=== PATIENT | female | born 1960 | race Caucasian/White ===

== ENCOUNTER 2020-02-22 08:15 | Outpatient (CLI) | payer BC, SELFPAY ==
--- NOTE | ~2020-02-22 | MM_ITS ---
EXAMINATION: MM screening tala BI w tram HISTORY: Screening mammogram TECHNIQUE: Craniocaudal and mediolateral oblique 3-D tomosynthesis images were obtained and synthetic 2-D images were generated. CAD analysis was submitted and interpreted. COMPARISON: 06/23/2018, 02/23/2017, 01/16/2016 bilateral digital screening mammogram examinations BREAST PARENCHYMAL COMPOSITION: The breasts are almost entirely fatty. FINDINGS: There is no evidence of suspicious mass, calcification, or architectural distortion to sugg est malignancy in either breast. There has been no suspicious interval change. IMPRESSION: 1. No mammographic evidence of malignancy. 2. Recommend routine screening mammography in one year. BI-RADS Category 1: Negative Reviewed, dictated and finalized at location B. FITTER
== END 2020-02-22 08:16 | disposition home or self-care (01) ==
LOC: ANHIMG 08:17
PROVIDERS: PCP Family Medicine; Visit Provider Physician Assistant
DX: Z12.31 Encounter for screening mammogram for malignant neoplasm of breast (principal)
CPT/HCPCS: 77063; 77067

== ENCOUNTER 2020-04-07 20:53 | Emergency (ER) | payer BC, SELFPAY ==
[2020-04-07 20:56] VITALS: BP 171/88; PULSE 80; RESP 16; TEMP 36.8; O2SAT 99
--- NOTE | 2020-04-07 22:00 | ED.WOUNDLAC ---
HPI - Wound/Laceration General Chief Complaint: Wound/Laceration Stated Complaint: finger laceration Time Seen by Provider: 04/07/20 21:44 Source: patient Mode of arrival: ambulatory Limitations: no limitations History of Present Illness HPI narrative: 59 years old white female presents with laceration of the right fifth finger while using a knife to cut him. Patient denies other injuries. Patient is up-to-date for tetanus shot. Patient declined x-ray of the finger Related Data Allergies Allergy/AdvReac Type Severity Reaction Status Date / Time latex Allergy Intermediate RASH Verified 04/07/20 21:02 Tetracyclines Allergy Unknown RASH Verified 04/07/20 21:02 Review of Systems Review of Systems: Narrative: CONSTITUTIONAL: Denies fever, chills, or sweats. EYES: Denies visual changes, redness, or discharge. ENT: Denies rhinorrhea, congestion, sore throat, or otalgia. CARDIOVASCULAR: Denies chest pain, palpitations, or edema. RESPIRATORY: Denies cough or dyspnea. GASTROINTESTINAL: Denies abdominal pain, nausea, vomiting, or diarrhea. GENITOURINARY: Denies dysuria or hematuria. SKIN: Denies rash or itching. MUSCULOSKELETAL: Denies back pain, joint pain, or myalgia. NEUROLOGIC: Denies headache, numbness, or weakness. PSYCHIATRIC: Denies anxiety or depression. [facility] Family History Family History Mother Diabetes mellitus Family history of malignant neoplasm of breast in first degree relative Grandparent Diabetes mellitus Family history of malignant neoplasm of breast Father Hypertension Family history of cardiovascular disease Social History Social History Smoking status: Former smoker Smoking end date: 04/06/81 Alcohol intake: current Exam Narrative: Exam Narrative: General appearance: Well-developed, well-nourished Skin: Normal color, right fifth finger showed 1 cm subcutaneous laceration at the dorsal side, just no ligament or tendon involved. Patient is able to flex and extend the finger without any restriction. No active bleeding. Patient arrived with Steri-Strips in place Chest and respiratory: Airway patent, no respiratory distress, no accessory muscle use Heart: Regular rate/rhythm Vascular: Normal peripheral pulses, normal capillary refill. Neurologic: Alert and oriented ?3, Course Course Emergency Course: Stable, resolved Vital Signs Vital signs: Vital Signs Temperature 36.8 C 04/07/20 20:56 Pulse Rate 80 04/07/20 20:56 Respiratory Rate 16 04/07/20 20:56 Blood Pressure 171/88 H 04/07/20 20:56 Pulse Oximetry 99 04/07/20 20:56 Temperature 36.6 C 04/07/20 22:47 Pulse Rate 84 04/07/20 22:47 Respiratory Rate 20 04/07/20 22:47 Blood Pressure 156/71 H 04/07/20 22:47 Pulse Oximetry 99 04/07/20 22:47 Procedures Laceration Laceration 1: Date: 04/07/20 Time: 22:56 Site: other (Right fifth finger) Size (cm): 1 Description: linear Depth: simple, single layer Local Anesthetic: lidocaine 1% Amount of anesthesia used (mL): 1 Pre-repair: wound explored, irrigated and deep structures intact ====== Skin Level ====== Skin layer closed with: other (Ethilon) Size (cm): 6-0 Number of sutures: 4 Technique: simple, interrupted ====== Subcutaneous Layer ====== ====== Muscle Layer ====== ====== Tendon Layer ====== MDM - Wound/Laceration MDM Narrative Medical decision making narrative: Patient presents with a laceration on the right fifth finger, Plan to
--- NOTE | 2020-04-07 22:45 | PC.NURSE ---
Verbal order to dress wound and splint finger with metal finger splint was obtained from Dr. Sprague.
[2020-04-07 22:47] VITALS: BP 156/71; PULSE 84; RESP 20; TEMP 36.6; O2SAT 99
== END 2020-04-07 22:50 | disposition home or self-care (01) ==
PROVIDERS: Emergency Provider Emergency Medicine; PCP Family Medicine
DX: S61.216A Laceration without foreign body of right little finger without damage to nail, initial encounter (principal); Z87.891 Personal history of nicotine dependence; W26.0XXA Contact with knife, initial encounter
CPT/HCPCS: 12001; 99282

== ENCOUNTER 2021-05-13 09:45 | Outpatient (RCR) | payer BC, SELFPAY ==
[2021-05-13 10:38] VITALS: BP 135/76; PULSE 74; TEMP 37.1; O2SAT 97
[2021-05-13] MEDS: ACETAMINOPHEN 325 MG TABLET 650 MG PO (10:40)
[2021-05-13] MEDS: FAMOTIDINE 20 MG TABLET PO (10:40)
[2021-05-13] MEDS: diphenhydrAMINE HCl CAP 25 MG CAPSULE PO (10:41)
[2021-05-13 12:05] VITALS: BP 140/71; PULSE 62; O2SAT 99
== END 2021-05-13 15:25 ==
LOC: AMCINF 09:45
PROVIDERS: PCP Family Medicine; Referring Provider Family Medicine; Visit Provider Internal Medicine Hematology & Oncology
DX: U07.1 COVID-19 (principal); I10 Essential (primary) hypertension
CPT/HCPCS: A9270; M0247; Q0247

== ENCOUNTER 2021-09-25 09:00 | Outpatient (CLI) | payer BC, SELFPAY ==
--- NOTE | ~2021-09-25 | MM_ITS ---
EXAMINATION: MM screening tala BI w tram HISTORY: Screening mammogram TECHNIQUE: Craniocaudal and mediolateral oblique 3-D tomosynthesis images were obtained and synthetic 2-D images were generated. CAD analysis was submitted and interpreted. COMPARISON: 02/22/2020, 07/01/2018, 03/03/2017 bilateral screening mammogram examinations BREAST PARENCHYMAL COMPOSITION: The breasts are almost entirely fatty. FINDINGS: There is no evidence of suspicious mass, calcification, or architectural distortion to sugg est malignancy in either breast. There has been no suspicious interval change. IMPRESSION: 1. No mammographic evidence of malignancy. 2. Recommend routine screening mammography in one year. BI-RADS Category 1: Negative Reviewed, dictated and finalized at location A.
== END 2021-09-25 09:01 | disposition home or self-care (01) ==
PROVIDERS: PCP Family Medicine; Visit Provider Family Medicine
DX: Z12.31 Encounter for screening mammogram for malignant neoplasm of breast (principal)
CPT/HCPCS: 77063; 77067

== ENCOUNTER 2023-08-06 10:51 | Outpatient (CLI) | payer BC, SELFPAY ==
[2023-08-06 19:19] LABS: Cholesterol 191 mg/dL (0-200); HDL Direct 48 mg/dL; Triglycerides 156 mg/dL (<150)
[2023-08-06 19:36] LABS: LDL Cholesterol Direct 127 mg/dL
== END 2023-08-06 10:52 | disposition home or self-care (01) ==
LOC: ANHGOSHLAB 10:54
PROVIDERS: PCP Family Medicine; Visit Provider Physician Assistant
DX: E78.5 Hyperlipidemia, unspecified (principal)
CPT/HCPCS: 36415; 80061

== ENCOUNTER 2023-12-16 07:34 | Outpatient (CLI) | payer MEDICARE, SELFPAY ==
--- NOTE | ~2023-12-16 | MM_ITS ---
EXAMINATION: MM screening taal BI w tram HISTORY: Screening mammogram TECHNIQUE: Craniocaudal and mediolateral oblique 3-D tomosynthesis images were obtained and synthetic 2-D images were generated. CAD analysis was submitted and interpreted. COMPARISON: 09/25/2021, 02/22/2020, 07/01/2018 BREAST PARENCHYMAL COMPOSITION:Not Dense. The breasts are almost entirely fatty FINDINGS: No suspicious mass, calcification, or architectural distortion are identified in either thuan ast to suggest malignancy. There has been no suspicious interval change. IMPRESSION: No mammographic evidence of malignancy. Recommend routine screening mammography in one year. BI-RADS Category 1: Negative Reviewed, dictated and finalized at location .
== END 2023-12-16 07:35 | disposition home or self-care (01) ==
LOC: ANHIMG 07:37
PROVIDERS: PCP Family Medicine; Visit Provider Nurse Practitioner Family
DX: Z12.31 Encounter for screening mammogram for malignant neoplasm of breast (principal)
CPT/HCPCS: 77063; 77067

== ENCOUNTER 2023-12-29 00:46 | Day surgery (SDC) | payer MEDICARE, SELFPAY ==
[2023-12-10 08:42] VITALS: BMI 28.5
[2023-12-29 11:57] VITALS: BP 140/92; PULSE 80; RESP 18; TEMP 36.2; O2SAT 97
[2023-12-29] MEDS: LACTATED RINGERS 1,000 ML 150 ML IV CONT (11:59)
--- NOTE | 2023-12-29 12:02 | WPDANESEPPF ---
Anes - Initial Pre Proc Eval Procedure: Operation Date: 12/29/23 13:00 Proposed Procedures p Colonoscopy - Merlin Ames MD Date/Time: 12/29/23 12:02 Surgeon: Merlin Ames MD Pre Op Diagnosis: change in bowel habit Patient Data Age: 63 Gender: F Height: 1.6 m Weight: 72.4 kg Last Vital Signs Temp 97.2 F L 12/29/23 11:57 Pulse 80 12/29/23 11:57 Resp 18 12/29/23 11:57 BP 140/92 H 12/29/23 11:57 Pulse Ox 97 12/29/23 11:57 O2 Del Method Room Air 12/29/23 11:57 Allergies Allergy/AdvReac Type Severity Reaction Status Date / Time latex Allergy Intermediate RASH Verified 12/29/23 11:52 Tetracyclines Allergy Unknown RASH Verified 12/29/23 11:52 Home Medications Medication Instructions Recorded Confirmed Type bupropion HCl 150 mg 24 hr tablet, See Rx Instructions .Route 08/18/23 12/10/23 Rx extended release .COMPLEX #270 tabs ergocalciferol (vitamin D2) 1,250 See Rx Instructions .Route 08/18/23 12/10/23 Rx mcg (50,000 unit) capsule .COMPLEX #13 caps spironolactone 50 mg tablet See Rx Instructions .Route 08/18/23 12/10/23 Rx .COMPLEX #90 tabs eszopiclone 3 mg tablet (Lunesta) 3 mg PO .qhs #90 tabs 10/07/23 12/10/23 Rx Patient hx anesthesia problems: none Family hx anesthesia problems: none Results Review: All pre-operative results and documents have been reviewed as part of the pre-operative evaluation. [facility] Past Medical History Medical History Insomnia Obesity (BMI 30.0-34.9) Family History Family History Mother Diabetes mellitus Family history of malignant neoplasm of breast in first degree relative Grandparent Diabetes mellitus Family history of malignant neoplasm of breast Father Hypertension Family history of cardiovascular disease Social History Social History (Reviewed 11/27/23 @ 10:17 by OLGA Fowler Smoking packs per day: 1 Smoking cigarettes per day: 20.0 Years smoked: 10 Smoking pack-years: 10.00 Smoking status: Former smoker Tobacco type: cigarettes Smoking end date: 04/06/81 Alcohol intake: current Drinks per week: 4 Substance use: never Substance use type: does not use Lack of Transportation: No Lack of Food: Never True Current Housing: I Have Housing Concerned About Future Housing: No Difficulty Paying Gas/Electric Bills: No Difficulty Paying for Meds: No Currently Unemployed: No Education: High School Diploma/GED Difficulty w/ Childcare or Family Care: No Living arrangements: with family Spiritual care concerns: No Anes - Eval Final PreProcedure Day of Procedure 12/29/23 12:02 Patient weight: normal Heart: regular rate and rhythm Lungs: clear to auscultation Airway: Mallampati scale class II Neurological: alert and oriented Last oral intake: >/= 8 hours ASA classification: II Emergent: no Anesthetic plan: proceed Anesthesia type and monitoring: general GIVS and standard monitoring Results Review: All pre-operative results and documents have been reviewed as part of the pre-operative evaluation. Informed Consent: The patient's anesthetic plan and its attendant risks and benefits were discussed with the patient/family/POA. Questions were solicited and answers provided to the satisfaction of the patient/family/POA.
--- NOTE | 2023-12-29 12:22 | PM.HPGS ---
History of Present Illness History of Present Illness Consent: Risks, benefits, and alternatives have been discussed and questions answered. Patient agrees to proceed with procedure. Chief complaint: screening colonoscopy Narrative: Donna Pitt is a 63 year old female here for screening colonoscopy Review of Systems Review of Systems: All systems reviewed & are unremarkable except as noted in HPI and below PMFSH Past Medical History Medical History Insomnia Obesity (BMI 30.0-34.9) Family History Family History Mother Diabetes mellitus Family history of malignant neoplasm of breast in first degree relative Grandparent Diabetes mellitus Family history of malignant neoplasm of breast Father Hypertension Family history of cardiovascular disease Social History Social History Smoking packs per day: 1 Smoking cigarettes per day: 20.0 Years smoked: 10 Smoking pack-years: 10.00 Smoking status: Former smoker Tobacco type: cigarettes Smoking end date: 04/06/81 Alcohol intake: current Drinks per week: 4 Substance use: never Substance use type: does not use Lack of Transportation: No Lack of Food: Never True Current Housing: I Have Housing Concerned About Future Housing: No Difficulty Paying Gas/Electric Bills: No Difficulty Paying for Meds: No Currently Unemployed: No Education: High School Diploma/GED Difficulty w/ Childcare or Family Care: No Living arrangements: with family Spiritual care concerns: No Meds Home Medications and Allergies Home Medications Medication Instructions Recorded Confirmed Type bupropion HCl 150 mg 24 hr tablet, See Rx Instructions .Route 08/18/23 12/10/23 Rx extended release .COMPLEX #270 tabs ergocalciferol (vitamin D2) 1,250 See Rx Instructions .Route 08/18/23 12/10/23 Rx mcg (50,000 unit) capsule .COMPLEX #13 caps spironolactone 50 mg tablet See Rx Instructions .Route 08/18/23 12/10/23 Rx .COMPLEX #90 tabs eszopiclone 3 mg tablet (Lunesta) 3 mg PO .qhs #90 tabs 10/07/23 12/10/23 Rx Allergies Allergy/AdvReac Type Severity Reaction Status Date / Time latex Allergy Intermediate RASH Verified 12/29/23 11:52 Tetracyclines Allergy Unknown RASH Verified 12/29/23 11:52 Vital Signs Vital Signs - 24 hr 12/29/23 11:57 Temperature 97.2 F L Pulse Rate 80 Respiratory Rate 18 Blood Pressure 140/92 H Pulse Oximetry 97 Oxygen Delivery Room Air Exam Const: General: comfortable and no acute distress HENMT: Face/Nose/Sinus: Normal nares present Eyes: General: appearance normal, both eyes and all related structures Neck: Neck: no JVD Resp: Auscultation: clear to auscultation bilaterally Cardio: Rate: regular rate Rhythm: regular rhythm GI: Inspection: non-distended GI Palp: Yes Soft to palpation Skin: General skin exam: normal color Neuro: General: gait normal Speech: normal speech Extrem: General: normal to inspection Psych: Mental Status: mental status grossly normal Assessment and Plan Assessment and plan (1) Screening for colon cancer: Code(s): Z12.11 - Encounter for screening for malignant neoplasm of colon Status: Acute Assessment and Plan: colonoscopy
[2023-12-29 12:43] VITALS: BP 111/72; PULSE 70; RESP 15; O2SAT 95
[2023-12-29 12:53] VITALS: BP 109/63; PULSE 67; RESP 18; O2SAT 97
[2023-12-29 13:03] VITALS: BP 129/75; PULSE 63; RESP 20; O2SAT 96
== END 2023-12-29 13:10 | disposition home or self-care (01) ==
PROVIDERS: PCP Family Medicine; Referring Provider Nurse Practitioner Family; Visit Provider Internal Medicine Gastroenterology
PROC: 0DJD8ZZ Inspection of Lower Intestinal Tract, Via Natural or Artificial Opening Endoscopic (ICD-10-PCS; CPT 45378; principal; 2023-12-29 13:00)
DX: Z12.11 Encounter for screening for malignant neoplasm of colon (principal); K64.8 Other hemorrhoids; Z87.891 Personal history of nicotine dependence; G47.00 Insomnia, unspecified
CPT/HCPCS: G0121; J2001; J2704; J7120

== ENCOUNTER 2024-01-21 09:10 | Outpatient (CLI) | payer MEDICARE, SELFPAY ==
--- NOTE | ~2024-01-21 | NM_ITS ---
EXAMINATION: NM stress w perf spect multi DATE: 01/21/2024 11:25 INDICATION: Shortness of breath TECHNIQUE: Rest images were obtained following intravenous administration of 10.2 mCi Tc99m tetrofosm in (Myoview). The patient performed an exercise activity. At peak exercise, 33 mCi Tc99m tetrofosmin (Myoview) was administered intravenously, and stress images were obtained. Data was reconstructed int o short axis and horizontal and vertical long axis SPECT images. Gated SPECT images were also obtaine d. COMPARISON: None. FINDINGS: There is normal left ventricular perfusion without definite evidence of reversible or fixed perfusion abnormality to suggest ischemia or infarction. There is normal left ventricular chamber size, wall motion and ejection fraction. Left ventricular ejection fraction measures >70%. IMPRESSION: 1. Normal myocardial perfusion at rest and during stress. 2. Left ventricular ejection fraction measuring >70%. Reviewed, dictated and finalized at location A.
--- NOTE | 2024-01-21 09:29 | EST_ITS ---
Patient Info Name: Donna Pitt Age: 63 years : 1960 Gender: Female Ht: 63 in Wt: 164 lbs BSA: 1.84 m2 HR: 69 bpm BP: 125 / 84 mmHg Heart Rhythm: Sinus Rhythm Exam Date: 01/21/2024 10:21 AM Exam Location: [facility] Patient Status: Outpatient Admit Date: 01/21/2024 Staff Ordering Physician: Radha Rosales Attending Provider: Radha Rosales Exercise Technologist: Mary Valenzuela CT Exercise Physician: Zay Owens DO Exam Type: CA stress test treadmill w NM Study Info Indications R06.09 - Other forms of dyspnea A nuclear stress test was performed. Summary 1. 1. Negative Noman exercise stress test for ischemic ST changes by ECG criteria. 2. 2. Good functional capacity, achieving 12 METs of workload. 3. 3. Appropriate HR response to exercise. 4. 4. Appropriate HR recovery at 1 minute post exercise. 5. 5. Nuclear scan to follow and will be reported separately. Please correlate with it. 6. 6. Patient informed of the above results. Protocol: Noman Stress ECG Details Stage: REST Duration (min): 1 min : 5 sec Speed (mph): 0.0 Grade (%): 0 HR (bpm): 68 SBP (mmHg): 125 DBP (mmHg): 84 METS: --- Stage: REST Duration (min): 9 min : 8 sec Speed (mph): 0.0 Grade (%): 0 HR (bpm): 77 SBP (mmHg): 125 DBP (mmHg): 84 METS: --- Stage: STAGE 1 Duration (min): 1 min : 0 sec Speed (mph): 1.7 Grade (%): 10 HR (bpm): 86 SBP (mmHg): 125 DBP (mmHg): 84 METS: --- Stage: STAGE 1 Duration (min): 2 min : 0 sec Speed (mph): 1.7 Grade (%): 10 HR (bpm): 92 SBP (mmHg): 125 DBP (mmHg): 84 METS: --- Stage: STAGE 1 Duration (min): 3 min : 0 sec Speed (mph): 1.7 Grade (%): 10 HR (bpm): 94 SBP (mmHg): 160 DBP (mmHg): 69 METS: --- Stage: STAGE 2 Duration (min): 1 min : 0 sec Speed (mph): 2.5 Grade (%): 12 HR (bpm): --- SBP (mmHg): 160 DBP (mmHg): 69 METS: --- Stage: STAGE 2 Duration (min): 2 min : 0 sec Speed (mph): 2.5 Grade (%): 12 HR (bpm): 99 SBP (mmHg): 173 DBP (mmHg): 68 METS: --- Stage: STAGE 2 Duration (min): 3 min : 0 sec Speed (mph): 2.5 Grade (%): 12 HR (bpm): 99 SBP (mmHg): 173 DBP (mmHg): 68 METS: --- Stage: STAGE 3 Duration (min): 1 min : 0 sec Speed (mph): 3.4 Grade (%): 14 HR (bpm): 105 SBP (mmHg): 180 DBP (mmHg): 67 METS: --- Stage: STAGE 3 Duration (min): 2 min : 0 sec Speed (mph): 3.4 Grade (%): 14 HR (bpm): 108 SBP (mmHg): 180 DBP (mmHg): 67 METS: --- Stage: STAGE 3 Duration (min): 3 min : 0 sec Speed (mph): 3.4 Grade (%): 14 HR (bpm): 114 SBP (mmHg): 180 DBP (mmHg): 80 METS: --- Stage: STAGE 4 Duration (min): 1 min : 0 sec Speed (mph): 4.2 Grade (%): 16 HR (bpm): 124 SBP (mmHg): 180 DBP (mmHg): 80 METS: --- Stage: STAGE 4 Duration (min): 1 min : 37 sec Speed (mph): 4.2 Grade (%): 16 HR (bpm
== END 2024-01-21 09:11 | disposition home or self-care (01) ==
PROVIDERS: PCP Family Medicine; Visit Provider Nurse Practitioner Family
DX: R06.09 Other forms of dyspnea (principal)
CPT/HCPCS: 78452; 93017; A9502; J2785

== ENCOUNTER 2024-02-02 09:12 | Outpatient (CLI) | payer MEDICARE, SELFPAY ==
--- NOTE | 2024-02-22 19:07 | P.SLEEP_ITS ---
Sleep Study - Home Unattended Date of Study: 02/02/24 Ordering Provider: Philip Sanchez MD Interpreting Provider: Mecca Flores, DO Home Sleep Study Type: Watch PAT Height: 1.6 m Weight: 72.575 kg Body Mass Index: 28.3 Neck Circumference (inches): 14 [place]: 0 Reason for Sleep Study Snoring Sleep History The patient is a 63-year-old female that had a sleep study ordered by her primary care for evaluation of sleep apnea. The patient admits to snoring loudly. She admits to interruptions in her breathing while asleep. She admits having difficulty maintaining sleep and falling asleep. She admits to choking / gasping. She has trouble breathing while on her back. She denies waking up in the morning with a headache. She admits to having a dry or sore mouth/ throat in the morning. She denies nocturnal heartburn. She denies nocturia. Sleep she denies having difficulty falling back asleep if she wakes up during the night. She does use hypnotics or sedatives. She does feel anxious about sleep. She denies feeling tired or fatigued during the day. She denies feeling tired or on refreshed in the morning. She denies having the urge to fall asleep during the day. She denies feeling drowsy while driving. She denies sleep paralysis, cataplexy and hypnagogic / hypnopompic hallucinations. She denies clenching or grinding her teeth. She denies kicking or jerking her legs excessively. She denies having a restless feeling in her legs. She goes to bed at 9:00 p.m. on weekdays and at 11:00 p.m. on the weekends. It takes her an hour and 15 minutes to fall asleep. She typically gets 7 hours of sleep per night. Her sleep is slightly more restorative on her days off. She denies taking any planned naps. She denies dream enactment behavior. She denies sleep walking. She consumes 1-2 cups of caffeinated beverage per day. She consumes 2 glasses of an alcoholic beverage 1-2 nights per week. She denies tobacco use. She does exercise 3-4 nights per week. [facility] Past Medical History Medical History Insomnia Obesity (BMI 30.0-34.9) Family History Family History Mother Diabetes mellitus Family history of malignant neoplasm of breast in first degree relative Grandparent Diabetes mellitus Family history of malignant neoplasm of breast Father Hypertension Family history of cardiovascular disease Social History Social History Smoking packs per day: 1 Smoking cigarettes per day: 20.0 Years smoked: 10 Smoking pack-years: 10.00 Smoking status: Former smoker Tobacco type: cigarettes Smoking end date: 04/06/81 Alcohol intake: current Drinks per week: 4 Substance use: never Substance use type: does not use Lack of Transportation: No Lack of Food: Never True Current Housing: I Have Housing Concerned About Future Housing: No Difficulty Paying Gas/Electric Bills: No Difficulty Paying for Meds: No Currently Unemployed: No Education: High School Diploma/GED Difficulty w/ Childcare or Family Care: No Living arrangements: with family Spiritual care concerns: No Medications Home Medications Medication Instructions Recorded Confirmed Type bupropion HCl 150 mg 24 hr tablet, See Rx Instructions .Route 08/18/23 12/29/23 Rx extended release .COMPLEX #270 tabs ergocalciferol (vitamin D2) 1,250 See Rx Instructions .Route 08/18/23 12/29/23 Rx mcg (50,000 unit) capsule .COMPLEX #13 caps spironolactone 50 mg tablet See Rx Instructions .Route 08/18/23 12/29/23 Rx .COMPLEX #90 tabs eszopiclone 3 mg tablet (Lunesta) 3 mg PO .qhs #90 tabs 10/07/23 12/29/23 Rx Sleep Procedure The sleep study was completed using [employer] 2 [employer]ception[employer] a technically adequate device with seven channels: peripheral arterial tone, actigraphy, body position, snore, respiratory movement, pulse oximetry, sleep staging, and heart rate. Prior to using the device, the patient received verbal and written instructions for its application and was provided with the [employer] phone number for additional telephonic instruction with 24-hour availability of qualified personnel to answer questions. The study was scored using CMS guidelines. Sleep Architecture The total recording time is 8 hrs, 41 min. The total sleep time is 8 hrs, 6 min. Sleep latency is 16 minutes. REM latency is 93 minutes. The patient had 2 episodes of waking. Sleep architecture shows 12.8% deep sleep, 59.1% light sleep, and (as % Total Sleep Time) showed NREM (Light 59.1%; Deep 12.8%), and a 28.1% stage REM. The patient spent 59.4% of total sleep time in the supine position. Sleep efficiency was 93.28. Respiratory Analysis The overall AHI (pAHI 4%:) is 7.2. The central AHI is 3.2. The AHI was 4.3 in NREM and 14.5 in REM sleep. The AHI was 7.9 in Supine and 6.1 in Non-supine sleep. Percent of Shai Fernandez respirations is 0.0. Oximetry Data The oxygen desaturation index (GAURI 4%:) is 7.0. The mean saturation is 93%, and the lowest saturation is 87%. Time spent with saturation < 88% is 0.1 minutes. Snoring Profile Snoring average intensity is 41 dB. The patient snored above 45 decibels for 45.2 minutes, 9.3% of sleep time. Cardiac Profile The average pulse rate is 58 beats per minutes. The lowest pulse rate is 49 bpm. The highest pulse rate reported is 74 bpm. Atrial fibrillation was not detected. Premature beats occur <0.1 per minute. Assessment and Plan Assessment and Plan (1) JUAN (obstructive sleep apnea): Code(s): G47.33 - Obstructive sleep apnea (adult) (pediatric) Status: Acute Assessment and Plan: The patient had an overall AHI of 7.2 with desaturation down to 87%. This is consistent with mild sleep apnea. Due to the patient's depression, she qualifies for treatment. Despite the patient having a normal central apnea index, nearly half of her respiratory events were central in nature. The patient is not an ideal candidate for AutoPAP because it can increase the frequency and severity of central apneas. I recommend that the patient have a CPAP Titration study with the use of a hypnotic to ensure we obtain enough sleep data and find an optimal pressure. Data The data obtained during this sleep study is adequate for interpretation. Certification This sleep study has been reviewed by a board certified sleep medicine physician.
[2024-02-22 19:15] VITALS: BMI 28.3
== END 2024-02-03 14:03 | disposition home or self-care (01) ==
LOC: ANHCSM 09:15
PROVIDERS: PCP Family Medicine; Visit Provider Family Medicine
DX: G47.33 Obstructive sleep apnea (adult) (pediatric) (principal)
CPT/HCPCS: 95800

== ENCOUNTER 2024-04-14 09:35 | Outpatient (CLI) | payer MEDICARE, SELFPAY ==
--- NOTE | 2024-05-05 10:01 | P.SLEEP_ITS ---
Sleep Study Date of Study: 04/14/24 Ordering Provider: Philip Sanchez MD Interpreting Physician: Ivette Carolina MD Sleep Study Type: CPAP Titration Height: 1.6 m Weight: 74.843 kg Body Mass Index: 29.2 Neck Circumference (inches): 14 [place]: 0 Reason for Sleep Study * 02/02/2024 home sleep test showing mild obstructive sleep apnea, AHI 7.2 with desaturation down to 87%. The central AHI is 3.2. The central and obstructive events wear about equal. She has a medical comorbidity of depression and is allowed treatment with mild sleep apnea and a medical comorbidity. Sleep History Donna Pitt is a 63-year-old female who had a home sleep study 02/02/2024 for loud snoring. This history is taken from her Feb 01 sleep report. She has mild obstructive and central sleep apnea, now presents for CPAP titration. The patient admits to snoring loudly. She admits to interruptions in her breathing while asleep. She admits having difficulty maintaining sleep and falling asleep. She admits to choking / gasping. She has trouble breathing while on her back. She denies waking up in the morning with a headache. She admits to having a dry or sore mouth/ throat in the morning. She denies nocturnal heartb urn. She denies nocturia. Sleep she denies having difficulty falling back asleep if she wakes up during the night. She does use hypnotics or sedatives. She does feel anxious about sleep. She denies feeling tired or fatigued during the day. She denies feeling tired or on refreshed in the morning. She denies having the urge to fall asleep during the day. She denies feeling drowsy while driving. She denies sleep paralysis, cataplexy and hypnagogic / hypnopompic hallucinations. She denies clenching or grinding her teeth. She denies kicking or jerking her legs excessively. She denies having a restless feeling in her legs. She goes to bed at 9:00 p.m. on weekdays and at 11:00 p.m. on the weekends. It takes her an hour and 15 minutes to fall asleep. She typically gets 7 hours of sleep per night. Her sleep is slightly more restorative on her days off. She denies taking any planned naps. She denies dream enactment behavior. She denies sleep walking. She consumes 1-2 cups of caffeinated beverage per day. She consumes 2 glasses of an alcoholic beverage 1-2 nights per week. She denies tobacco use. She does exercise 3-4 nights per week. [facility] Past Medical History Medical History (Updated 05/05/24 @ 10:06 by Ivette Carolina MD) JUAN (obstructive sleep apnea) Insomnia Obesity (BMI 30.0-34.9) Family History Family History Mother Diabetes mellitus Family history of malignant neoplasm of breast in first degree relative Grandparent Diabetes mellitus Family history of malignant neoplasm of breast Father Hypertension Family history of cardiovascular disease Social History Social History Smoking packs per day: 0 Smoking cigarettes per day: 0.0 Years smoked: 10 Smoking pack-years: 0.00 Smoking status: Former smoker Tobacco type: cigarettes Smoking end date: 04/06/81 Alcohol intake: current Drinks per week: 4 Substance use: never Substance use type: does not use Lack of Transportation: No Lack of Food: Never True Current Housing: I Have Housing Concerned About Future Housing: No Difficulty Paying Gas/Electric Bills: No Difficulty Paying for Meds: No Currently Unemployed: No Education: High School Diploma/GED Difficulty w/ Childcare or Family Care: No Living arrangements: with family Spiritual care concerns: No Medications Home Medications ?Medication ?Instructions ?Recorded ?Confirmed ?Type bupropion HCl 150 mg 24 hr tablet, See Rx Instructions .Route 08/18/23 02/23/24 Rx extended release .COMPLEX #270 tabs ergocalciferol (vitamin D2) 1,250 See Rx Instructions .Route 08/18/23 02/23/24 Rx mcg (50,000 unit) capsule .COMPLEX #13 caps spironolactone 50 mg tablet See Rx Instructions .Route 08/18/23 02/23/24 Rx .COMPLEX #90 tabs eszopiclone 3 mg tablet 3 mg PO QHS #90 tabs 04/26/24 Rx Sleep Procedure A full CPAP polysomnogram using the [employer] multi-channel system recorded the standard physiologic parameters including EEG, EOG, submentalis EMG, anterior tibialis EMG, EKG, body position, nasal and oral airflow using nasal pressure sensor and thermistor. Respiratory parameters of chest and abdominal movements were recorded with Respiratory Inductance Plethysmography belts. Oxygen saturation was recorded by pulse oximetry. Video monitoring was also performed. Sleep stages, periodic limb movements, and EEG arousals were scored in 30 second epochs according to the criteria of the AASM Scoring Manual. The Apnea-Hypopnea Index was calculated using CMS guidelines for definition of hypopnea while scoring respiratory events. The patient self-administered Lunesta 2 mg at the beginning of the study. She requested a wake-up time of 4:30 a.m. 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 She was started on CPAP using a medium ResMed AirTouch F20 fullface mask with heated humidity, was titrated with an initial pressure of CPAP 5 cm, 7 cm, 8 cm, and 10 cm water pressure. She had no central apneas during this study. She had supine REM on CPAP 5 and CPAP 7. She spent 17 minutes at CPAP 8 and CPAP 10. Events were well controlled during the entire night. CPAP 7 cm appears excellent. At this pressure she had supine REM. She spent 197.5 minutes in bed, 29 minutes awake, 145 minutes in non-REM and 23.5 minutes in REM. Sleep efficiency was 85.3%. The residual apnea-hypopnea index was 0.4 using a 4% criteria. Sleep efficiency was 100% at CPAP 8 cm, was in non-REM. The residual AHI was 3.4. On CPAP 10 she spent 17 minutes but had a lower sleep efficiency of 64.7%. Sleep Architecture The total recording time was 409.4 minutes. The total sleep time was 336.0 minutes. Sleep latency was 10.4 minutes. REM latency was 147.0 minutes. Sleep efficiency was 82.1%. The patient had 26 awakenings for an awakening index of 4.6. Wake after Sleep Onset time was 62.5 minutes. The patient spent 44.0 minutes, 13.1% of total sleep time in Stage N1. The patient spent 204.0 minutes, 60.7% in Stage N2. The patient spent 44.5 minutes, 13.2% in Stage N3. The patient spent 43.5 minutes, 12.9% in Stage REM. Respiratory Analysis The patient had 5 hypopneas, no obstructive apneas, no- mixed apneas, and no- central apneas for an overall Apnea Hypopnea Index of 0.9 events per hour. The REM Apnea Hypopnea Index was 2.8. The NREM Apnea Hypopnea Index was 0.6. The patient had a Central Apnea Hypopnea Index of 0. There were no Respiratory Effort Related Arousals. The Respiratory Disturbance Index is 3.0 events per hour. There was no evidence of Shai-Fernandez Respirations. Arousals There were 107 total arousals for an arousal index of 19.1. There were 71 spontaneous arousals for an index of 12.7. There were 9 arousals due to respiratory events for an index of 1.6. There were 5 arousals due to periodic limb movements for an index of 0.9. There were 23 arousals due to isolated limb movements for an index of 4.1. Periodic Limb Movements The patient had 38 isolated limb movements with an index of 6.8. The patient had 11 periodic limb movements with index of 2.0. Patient had a total of 49 limb movements with a total limb movement index of 8.8. Oximetry Data The patient had an average oxygen saturation of 93.7% in sleep with a minimum oxygen saturation of 90.0% and a maximum oxygen saturation of 98.0%. The patient had 6 oxygen desaturations that were 4% or greater resulting in an Oxygen Desaturation Index of 1.1. The patient spent no time with an oxygen saturation below 88%. Snoring Profile Snoring was mild, eliminated at the optimal pressure. Cardiac Profile The EKG showed normal sinus rhythm. The patient had an average pulse rate of 67.5 bpm with a minimum pulse rate of 61 bpm and a maximum pulse rate of 73 bpm. EEG Profile EEG was unremarkable, no evidence of seizures. Assessment and Plan Assessment and Plan (1) JUAN (obstructive sleep apnea): Code(s): G47.33 - Obstructive sleep apnea (adult) (pediatric) Status: Acute Assessment and Plan: This full night CPAP titration on April 14, 2024 shows a successful titration using a medium ResMed AirTouch F20 fullface mask and heated humidity with control of events at all pressures between 5 cm and 10 cm. The optimal pressure appears to be 7 cm with a residual AHI of 0.4, supine REM and a sleep efficiency of 85.3%. Given the patient has mild sleep apnea she is a candidate for an oral appliance. The tech note indicates that she has of visit for evaluation for the inspire hypoglossal nerve stimulator later in May. Clinical correlation is recommended. She may want to decide about treatment options after her Inspire evaluation. Data The data obtained during this sleep study is adequate for interpretation. Certification This sleep study has been reviewed by a board certified sleep medicine physician.
[2024-05-05 10:02] VITALS: BMI 29.2
== END 2024-04-15 04:49 | disposition home or self-care (01) ==
LOC: ANHCSM 09:36
PROVIDERS: PCP Family Medicine; Visit Provider Family Medicine
DX: G47.33 Obstructive sleep apnea (adult) (pediatric) (principal); G47.00 Insomnia, unspecified; E88.819 Insulin resistance, unspecified; F32.9 Major depressive disorder, single episode, unspecified
CPT/HCPCS: 95811

== ENCOUNTER 2024-08-23 10:47 | Outpatient (CLI) | payer MEDICARE, SELFPAY ==
--- OUTSIDE RECORDS SUMMARY | 2024-08-23 11:02 | XMS_ITS | Clinical Summary ---
Author Organization [facility] Address [address] [place] [phone] Care Team Providers Care Semi Truck Driver Name Role Phone Philip Sanchez MD Primary Care Provider +1 -[phone] Allergies No known active allergies Medications ergocalciferol (VITAMIN D) 50,000 unit capsule Take 1 capsule (50,000 Units total) by mouth once a week 05/11/2024 Active buPROPion SR (WELLBUTRIN SR) 150 mg 12 hr tablet Take 1 tablet (150 mg total) by mouth 2 (two) times a day Active spironolactone (ALDACTONE) 50 mg tablet Take 1 tablet (50 mg total) by mouth daily Active traZODone (DESYREL) 50 mg tablet Take 1 tablet (50 mg total) by mouth nightly Active tooamfkt-lgby-o in-folic acid 18-0.4 mg tablet Take by mouth Active Active Problems No known active problems Social History Tobacco Use Types Packs/Day Years Used Date Smoking Tobacco: Never Passive Smoke Exposure: Never Smokeless Tobacco: Never Tobacco Cessation:Counseling Given: Not Answered Comments Unknown Sex and Gender Information Value Date Recorded Sex Assigned at Not on file 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 Gender Identity Not on file Sexual Orientation Not on file Obstetrics History Last Filed Vital Signs Vital Sign Reading Time Taken Comments Blood Pressure - - Pulse - - Temperature - - Respiratory Rate - - Oxygen Saturation - - Inhaled Oxygen Concentration - - Weight 73.4 kg (161 lb 12.8 oz) 025 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 TEACHER Height 160 cm (5' 3 ) 05/23/2024 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 TEACHER Body Mass Index 28.66 05/23/2024 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 TEACHER Plan of Treatment Health Maintenance Due Date Last Done Comments Breast Cancer Screening-Mammogram 1958 Cervical Cancer Screening 1958 Colon Cancer Screening-Colonoscopy 1958 Depression Screening 1958 Fall Risk Assessment 1958 Hepatitis C Screening 1958 Osteoporosis Screening-Bone Density Scan 1958 Hepatitis B Screening 1976 Zoster Vaccine (1 of 2) 2008 Pneumococcal vaccine 65+ (2 of 2 - PPSV23) 06/16/2020 06/17/2019 Well Visit 65+ 11/09/2023 Influenza Vaccine (#1) 2023 12/29/2019, 2018 DTaP/Tdap/Td Vaccine (2 - Td or Tdap) 06/16/2029 Insurance AETNA MEDICARE GOLD Care Teams Semi Truck Driver Relationship Specialty Start Date End Date Philip Sanchez MD [address] [place] [address] KANDIS CORRALES [id number] PCP - General Family Medicine 03/09/24
--- OUTSIDE RECORDS SUMMARY | 2024-08-23 11:02 | XMS_ITS | Referral Summary ---
Author Organization [facility] Address [address] [place] [phone] Care Team Providers Care Mental Health Nurse Name Role Phone Philip Sanchez MD Primary Care Provider +1 -[phone] Allergies No known active allergies Medications ergocalciferol [...] (50 mg total) by mouth nightly Active iybjsogc-llxv-s in-folic acid 18-0.4 mg tablet Take by mouth Active Active Problems No known active problems Social History Tobacco Use Types Packs/Day Years Used Date Smoking Tobacco: Never Passive Smoke Exposure: Never Smokeless Tobacco: Never Tobacco Cessation:Counseling Given: Not Answered Comments Unknown Sex and Gender Information Value Date Recorded Sex Assigned at Not on file 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 Gender Identity Not on file Sexual Orientation Not on file Last Filed Vital Signs Vital Sign Reading Time Taken Comments Blood Pressure - - Pulse - - Temperature - - Respiratory Rate - - Oxygen Saturation - - Inhaled Oxygen Concentration - - Weight 73.4 kg (161 lb 12.8 oz) 025 11:49 AM 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
--- OUTSIDE RECORDS SUMMARY | 2024-08-23 11:02 | XMS_ITS | Clinical Summary ---
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 Gender Identity Not on file Sexual Orientation Not on file Plan of Treatment Health Maintenance Due Date Last Done Comments DEXA Bone Density 1958 Hepatitis C Virus (HCV) Screening 1958 Pap Smear 11/09/1979 Cervical Cancer Screening (CCS) 1988 HPV/Cotest 1988 Colonoscopy 11/09/2003 Colorectal Cancer Screening 11/09/2003 Cologuard 2008 Immunochemical Fecal Occult Blood 2008 Mammogram 2008 Zoster Immunization (1 of 2) 2008 Pneumococcal Immunization (5 0+ years) (2 of 2 - PPSV23) 06/16/2020 06/17/2019 Influenza Immunization (#1) 2023 12/13/2018 SARS-COV-2 Immunization ( season) 2023 Respiratory Syncytial Virus (RSV) Immunization (Adult) (1 - 1-dose 75+ series) 2033 DTaP/Tdap/Td Immunization Discontinued 06/17/2019 Pneumococcal Immunization Combined Discontinued 2019 TdaP Immunization Completed 06/17/2019 Hepatitis B Immunization Aged Out No longer eligible based on patient's age to complete this topic Meningococcal Immunization (ACWY) Aged Out No longer eligible based on patient's age to complete this topic Rotavirus Immunization Aged Out No lo nger eligible based on patient's age to complete this topic
[2024-08-23 13:26] LABS: Basophils Absolute Auto 0.1 K/mm3 (0.0-0.1); Basophils Percent Auto 1.1 % (0.2-1.2); Eosinophils Absolute Auto 0.1 K/mm3 (0-0.3); Eosinophils Percent Auto 2.6 % (0-4.4); Hematocrit 42.9 % (37.0-47.0); Hemoglobin 14.2 g/dL (12.0-15.0); Immature Granulocyte Absolute 0.01 K/mm3 (0.00-0.031); Immature Granulocyte Percent A 0.2 % (0-0.5); Lymphocytes Absolute Auto 1.82 K/mm3 (0.9-3.2); Lymphocytes Percent Auto 33.9 % (18.3-44.2); Mean Corpuscular HGB Conc 33.1 g/dl (32-36); Mean Corpuscular Hemoglobin 30.2 pg (26-34); Mean Corpuscular Volume 91.3 fl (80-100); Mean Platelet Volume 10.2 fl (7.4-10.4); Monocytes Absolute Auto 0.6 K/mm3 (0.1-0.6); Monocytes Percent Auto 11.5 % (2.6-8.5); Neutrophils Absolute Auto 2.7 K/mm3 (1.3-6.7); Neutrophils Percent Auto 50.7 % (45.5-73.1); Platelet Count Result 221 k/mm3 (150-375); Red Cell Distribution Width 12.6 % (11.5-14.5); White Blood Count 5.4 K/mm3 (4.5-10.0)
[2024-08-23 13:27] LABS: Alanine Aminotransferase 58 U/L (6-35); Albumin Level 4.5 g/dL (3.5-5.1); Alkaline Phosphatase 77 U/L (38-126); Anion Gap 9 mmol/L (4-12); Aspartate Amino Transferase 86 U/L (14-36); Bilirubin,Total 0.6 mg/dL (0.2-1.3); Blood Urea Nitrogen 31 mg/dL (7-17); Calcium 9.4 mg/dL (8.4-10.2); Carbon Dioxide 26 mmol/L (22-30); Chloride 104 mmol/L (98-107); Cholesterol 202 mg/dL (0-200); Estimated Glomerular Filt Rate > 60; Glucose 96 mg/dL (65-110); HDL Direct 47 mg/dL; Potassium 4.4 mmol/L (3.4-5.0); Sodium 139 mmol/L (137-145); Triglycerides 113 mg/dL (<150)
[2024-08-23 13:39] LABS: LDL Cholesterol Direct 116 mg/dL
[2024-08-23 14:27] LABS: Hepatitis C Virus Antibody Negative (Negative)
== END 2024-08-23 10:48 | disposition home or self-care (01) ==
PROVIDERS: PCP Family Medicine; Visit Provider Nurse Practitioner Family
DX: E55.9 Vitamin D deficiency, unspecified (principal); L64.9 Androgenic alopecia, unspecified; G47.33 Obstructive sleep apnea (adult) (pediatric); E78.1 Pure hyperglyceridemia; I10 Essential (primary) hypertension; E66.9 Obesity, unspecified; Z11.59 Encounter for screening for other viral diseases
CPT/HCPCS: 36415; 80053; 80061; 85025; 86803

== ENCOUNTER 2024-08-25 10:46 | Outpatient (CLI) | payer MEDICARE, SELFPAY ==
--- OUTSIDE RECORDS SUMMARY | 2024-08-25 10:51 | XMS_ITS | Referral Summary ---
Author Organization [facility] Address [address] [place] [phone] Care Team Providers Care Worship Pastor Name Role Phone Philip Sanchez MD Primary Care Provider +1 -[phone] Allergies No known active allergies Medications ergocalciferol [...] (50 mg total) by mouth nightly Active xrqxdbdw-ibrj-k in-folic acid 18-0.4 mg tablet Take by mouth Active Active Problems No known active problems Social History Tobacco Use Types Packs/Day Years Used Date Smoking Tobacco: Never Passive Smoke Exposure: Never Smokeless Tobacco: Never Tobacco Cessation:Counseling Given: Not Answered Comments Unknown Sex and Gender Information Value Date Recorded Sex Assigned at Not on file Legal 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 Gender Identity Not on file Sexual Orientation Not on file Last Filed Vital Signs Vital Sign Reading Time Taken Comments Blood Pressure - - Pulse - - Temperature - - Respiratory Rate - - Oxygen Saturation - - Inhaled Oxygen Concentration - - Weight 73.4 kg (161 lb 12.8 oz) 025 11:49 AM STEWARD/STEWARDESS ECONOMY CLASS Height 160 cm (5' 3 ) 05/23/2024 11:49 AM STEWARD/STEWARDESS ECONOMY CLASS Body Mass Index 28.66 05/23/2024 11:49 AM STEWARD/STEWARDESS ECONOMY CLASS Plan of Treatment Not on file Insurance AETNA MEDICARE GOLD Care Teams Worship Pastor Relationship Specialty Start Date End Date Philip Sanchez MD [address] [place] [id number] PCP - General Family Medicine 03/09/24
--- OUTSIDE RECORDS SUMMARY | 2024-08-25 10:51 | XMS_ITS | Clinical Summary ---
Author Organization [facility] Address [address] [place] [phone] Care Team Providers Care Reinforcing Iron And Rebar Workers Name Role Phone Philip Sanchez MD Primary Care Provider +1 [phone] Allergies No known active allergies Medications ergocalciferol [...] (50 mg total) by mouth nightly Active mngqvqnl-vsvn-x in-folic acid 18-0.4 mg tablet Take by mouth Active Active Problems No known active problems Social History Tobacco Use Types Packs/Day Years Used Date Smoking Tobacco: Never Passive Smoke Exposure: Never Smokeless Tobacco: Never Tobacco Cessation:Counseling Given: Not Answered Comments Unknown Sex and Gender Information Value Date Recorded Sex Assigned at Not on file Legal Sex Female 12:59 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 Gender Identity Not on file Sexual Orientation Not on file Obstetrics History Last Filed Vital Signs Vital Sign Reading Time Taken Comments Blood Pressure - - Pulse - - Temperature - - Respiratory Rate - - Oxygen Saturation - - Inhaled Oxygen Concentration - - Weight 73.4 kg (161 lb 12.8 oz) 025 11:49 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 TEACHER Height 160 cm (5' 3 ) 05/23/2024 11:49 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 TEACHER Body Mass Index 28.66 05/23/2024 11:49 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 TEACHER Plan of Treatment Health Maintenance Due [...] 06/17/2019 Well Visit 65+ 11/09/2023 Influenza Vaccine (Season Ended) 2024 12/29/19 20, 12/13/2018 DTaP/Tdap/Td Vaccine (2 - Td or Tdap) 06/16/2029 Insurance AETNA MEDICARE GOLD [facility] MEDIC[facility] Address: [address] [address] Care Teams Reinforcing Iron And Rebar Workers Relationship Specialty Start Date End Date Philip Sanchez MD [address] [place] [address] KANDIS CORRALES [address] PCP - General Family Medicine 03/09/24
--- OUTSIDE RECORDS SUMMARY | 2024-08-25 10:51 | XMS_ITS | Clinical Summary ---
Author Organization [facility] Care Team Providers Care Canvas Cutter Machine Name Role Phone Unavailable Primary Care Provider Unavailabl e Social History Tobacco Use Types Packs/Day Years Used Date Smoking Tobacco: Never Assessed Comments Unknown Sex and Gender Information Value Date Recorded Sex Assigned at Not on file Legal Sex Female 1:35 PM PATHOLOGY TECHNOLOGIST Gender Identity Not on file Sexual Orientation [...]
[2024-08-25 11:52] LABS: Alanine Aminotransferase 56 U/L (6-35); Albumin Level 4.8 g/dL (3.5-5.1); Alkaline Phosphatase 73 U/L (38-126); Anion Gap 9 mmol/L (4-12); Aspartate Amino Transferase 55 U/L (14-36); Bilirubin,Total 0.5 mg/dL (0.2-1.3); Blood Urea Nitrogen 21 mg/dL (7-17); Calcium 9.8 mg/dL (8.4-10.2); Carbon Dioxide 27 mmol/L (22-30); Chloride 102 mmol/L (98-107); Estimated Glomerular Filt Rate > 60; Glucose 102 mg/dL (65-110); Potassium 4.3 mmol/L (3.4-5.0); Sodium 138 mmol/L (137-145)
[2024-08-25 12:24] LABS: Hepatitis B Surface Antigen Negative (Negative)
[2024-08-25 12:30] LABS: HAV RESULT Negative (Negative); Hepatitis B Core IgM Result Negative (Negative)
[2024-08-25 12:41] LABS: Hepatitis C Virus Antibody Negative (Negative)
== END 2024-08-25 10:47 | disposition home or self-care (01) ==
LOC: ANHGOSHLAB 10:47
PROVIDERS: PCP Family Medicine; Visit Provider Family Medicine
DX: R74.01 Elevation of levels of liver transaminase levels (principal); R79.89 Other specified abnormal findings of blood chemistry
CPT/HCPCS: 36415; 80053; 80074

== ENCOUNTER 2024-09-01 08:21 | Outpatient (CLI) | payer MEDICARE, SELFPAY ==
--- NOTE | ~2024-09-01 | US_ITS ---
Abdominal Sonogram: Real-time sonographic imaging of the abdomen was performed. Clinical History: Abnormal blood chemistry findings Findings: The liver appears normal with no evidence of solid mass lesion or bile duct dilatation. Ma in portal vein demonstrates normal direction of flow. The spleen is normal in size without evidence o f focal lesion. The gallbladder is moderately distended, echogenic shadowing gallstones. The common bile duct measures 3 mm. The visualized pancreas, aorta, and IVC are unremarkable. The right kidney measures 10.9 cm in length and the left kidney measures 10.7 cm. There is no hydronephrosis or su l calculus. There is echogenic area in the left renal cortex which could reflect scarring or possibly angiomyolipoma. Impression: Cholelithiasis. Reviewed, dictated and finalized at [facility]. Impression: Cholelithiasis.
== END 2024-09-01 08:22 | disposition home or self-care (01) ==
LOC: GOSHIMG 08:21
PROVIDERS: PCP Family Medicine; Visit Provider Family Medicine
DX: K80.20 Calculus of gallbladder without cholecystitis without obstruction (principal); R79.89 Other specified abnormal findings of blood chemistry
CPT/HCPCS: 76700

== ENCOUNTER 2024-11-02 14:29 | Outpatient (CLI) | payer MEDICARE, SELFPAY ==
--- OUTSIDE RECORDS SUMMARY | 2024-11-02 14:41 | XMS_ITS | Referral Summary ---
Author Organization [facility] Address [address] [place] [phone] Care Team Providers Care Hospital Food Service Worker Name Role Phone Philip Sanchez MD Primary Care Provider +1 -[phone] Allergies No known active allergies Medications ergocalciferol [...] (50 mg total) by mouth nightly Active ueynmxyu-pdim-n in-folic acid 18-0.4 mg tablet Take by mouth Active Active Problems No known active problems Social History Tobacco Use Types Packs/Day Years Used Date Smoking Tobacco: Never Passive Smoke Exposure: Never Smokeless Tobacco: Never Tobacco Cessation:Counseling Given: Not Answered Comments Unknown Sex and Gender Information Value Date Recorded Sex Assigned at Not on file Legal Sex Female 12:59 AM SHORT GOODS DRIER Gender Identity Not on file Sexual Orientation Not on file Last Filed Vital Signs Vital Sign Reading Time Taken Comments Blood Pressure - - Pulse - - Temperature - - Respiratory Rate - - Oxygen Saturation - - Inhaled Oxygen Concentration - - Weight 73.4 kg (161 lb 12.8 oz) 025 11:49 AM SHORT GOODS DRIER Height 160 cm (5' 3) 05/23/2024 11:49 AM SHORT GOODS DRIER Body Mass Index 28.66 05/23/2024 11:49 AM SHORT GOODS DRIER Plan of Treatment Not on file Insurance AETNA MEDICARE GOLD Care Teams Hospital Food Service Worker Relationship Specialty Start Date End Date Philip Sanchez MD [address] [place] [id number] PCP - General Family Medicine 03/09/24
--- OUTSIDE RECORDS SUMMARY | 2024-11-02 14:41 | XMS_ITS | Clinical Summary ---
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 Gender Identity Not on file Sexual Orientation Not on file Plan of Treatment Health Maintenance Due Date Last Done Comments Hepatitis C Virus (HCV) Screening 1958 Pap Smear 11/09/1979 Cervical Cancer Screening (CCS) 1988 HPV/Cotest 1988 Cologuard 11/09/2003 Colonoscopy 11/09/2003 Colorectal Cancer Screening 11/09/2003 Immunochemical Fecal Occult Blood 11/09/2003 Zoster Immunization (1 of 2) 2008 Pneumococcal Immunization (5 0+ years) (2 of 2 - PPSV23) 06/16/2020 06/17/2019 SARS-COV-2 Immunization ( season) 2023 Influenza Immunization (#1) 2024 12/13/2018 Respiratory Syncytial Virus (RSV) Immunization (Adult) (1 - 1-dose 75+ series) 2033 DTaP/Tdap/Td Immunization Discontinued 06/17/2019 Pneumococcal Immunization Combined Discontinued 2019 TdaP Immunization Completed 06/17/2019 Hepatitis B Immunization Aged Out No longer eligible based on patient's age to complete this topic Human Papillomavirus (HPV) Immunization Aged Out No longer eligible b ased on patient's age to complete this topic Meningococcal Immunization (ACWY) Aged Out No longer eligible based on patient's age to complete this topic Rotavirus Immunization Aged Out No lo nger eligible based on patient's age to complete this topic
--- OUTSIDE RECORDS SUMMARY | 2024-11-02 14:41 | XMS_ITS | Clinical Summary ---
Author Organization [facility] Address [address] [place] [phone] Care Team Providers Care Staff Trainer Name Role Phone Philip Sanchez MD Primary Care Provider +1 -[phone] Allergies No known active allergies Medications ergocalciferol [...] (50 mg total) by mouth nightly Active dnqmkbho-bvai-w in-folic acid 18-0.4 mg tablet Take by mouth Active Active Problems No known active problems Social History Tobacco Use Types Packs/Day Years Used Date Smoking Tobacco: Never Passive Smoke Exposure: Never Smokeless Tobacco: Never Tobacco Cessation:Counseling Given: Not Answered Comments Unknown Sex and Gender Information Value Date Recorded Sex Assigned at Not on file Legal Sex Female 12:59 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 Gender Identity Not on file Sexual Orientation Not on file Obstetrics History Last Filed Vital Signs Vital Sign Reading Time Taken Comments Blood Pressure - - Pulse - - Temperature - - Respiratory Rate - - Oxygen Saturation - - Inhaled Oxygen Concentration - - Weight 73.4 kg (161 lb 12.8 oz) 025 11:49 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 Height 160 cm (5' 3) 05/23/2024 11:49 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 Body Mass Index 28.66 05/23/2024 11:49 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 Plan of Treatment Health Maintenance Due Date [...] Well Visit 65+ 11/09/2023 Influenza Vaccine (#1) 2024 12/29/2019, 2018 DTaP/Tdap/Td Vaccine (2 - Td or Tdap) 06/16/2029 Insurance AETNA MEDICARE GOLD [facility] MEDICARE Address: [address] [address] Care Teams Staff Trainer Relationship Specialty Start Date End Date Philip Sanchez MD [address] [place] [address] KANDIS CORRALES [address] PCP - General Family Medicine 03/09/24
[2024-11-02 20:45] LABS: Hepatitis B Surface Antigen Negative (Negative)
[2024-11-02 20:52] LABS: HAV RESULT Negative (Negative); Hepatitis B Core IgM Result Negative (Negative)
== END 2024-11-02 14:30 | disposition home or self-care (01) ==
LOC: ANHGOSHLAB 14:30
PROVIDERS: PCP Family Medicine; Visit Provider Family Medicine
DX: R74.01 Elevation of levels of liver transaminase levels (principal)
CPT/HCPCS: 36415; 80074

== ENCOUNTER 2024-11-03 10:06 | Outpatient (CLI) | payer MEDICARE, SELFPAY ==
--- OUTSIDE RECORDS SUMMARY | 2024-11-03 10:16 | XMS_ITS | Referral Summary ---
Author Organization [facility] Address [address] [place] [phone] Care Team Providers Care Pole Cutter Name Role Phone Philip Sanchez MD Primary Care Provider +1 -[phone] Allergies No known active allergies Medications ergocalciferol [...] (50 mg total) by mouth nightly Active zwwdujns-savt-l in-folic acid 18-0.4 mg tablet Take by mouth Active Active Problems No known active problems Social History Tobacco Use Types Packs/Day Years Used Date Smoking Tobacco: Never Passive Smoke Exposure: Never Smokeless Tobacco: Never Tobacco Cessation:Counseling Given: Not Answered Comments Unknown Sex and Gender Information Value Date Recorded Sex Assigned at Not on file Legal Sex Female 12:59 AM CHIEF ACCOUNTING OFFICER Gender Identity Not on file Sexual Orientation Not on file Last Filed Vital Signs Vital Sign Reading Time Taken Comments Blood Pressure - - Pulse - - Temperature - - Respiratory Rate - - Oxygen Saturation - - Inhaled Oxygen Concentration - - Weight 73.4 kg (161 lb 12.8 oz) 025 11:49 AM CHIEF ACCOUNTING OFFICER Height 160 cm (5' 3) 05/23/2024 11:49 AM CHIEF ACCOUNTING OFFICER Body Mass Index 28.66 05/23/2024 11:49 AM CHIEF ACCOUNTING OFFICER Plan of Treatment Not on file Insurance AETNA MEDICARE GOLD Care Teams Pole Cutter Relationship Specialty Start Date End Date Philip Sanchez MD [address] [place] [id number] PCP - General Family Medicine 03/09/24
--- OUTSIDE RECORDS SUMMARY | 2024-11-03 10:16 | XMS_ITS | Clinical Summary ---
Author Organization [facility] Care Team Providers Care Crop Consultant Name Role Phone Unavailable Primary Care Provider Unavailabl e Social History Tobacco Use Types Packs/Day Years Used Date Smoking Tobacco: Never Assessed Comments Unknown Sex and Gender Information Value Date Recorded Sex Assigned at Not on file Legal Sex Female 1:35 PM RES COUNSELOR Gender Identity Not on file Sexual Orientation [...]
--- OUTSIDE RECORDS SUMMARY | 2024-11-03 10:16 | XMS_ITS | Clinical Summary ---
Author Organization [facility] Address [address] [place] [phone] Care Team Providers Care Tax Manager Name Role Phone Philip Sanchez MD Primary Care Provider +1 -[phone] Allergies No known active allergies Medications ergocalciferol [...] (50 mg total) by mouth nightly Active nrkdsrjl-okod-y in-folic acid 18-0.4 mg tablet Take by mouth Active Active Problems No known active problems Social History Tobacco Use Types Packs/Day Years Used Date Smoking Tobacco: Never Passive Smoke Exposure: Never Smokeless Tobacco: Never Tobacco Cessation:Counseling Given: Not Answered Comments Unknown Sex and Gender Information Value Date Recorded Sex Assigned at Not on file Legal Sex Female 12:59 AM PATTERN GENERATOR OPERATOR Gender Identity Not on file Sexual Orientation Not on file Obstetrics History Last Filed Vital Signs Vital Sign Reading Time Taken Comments Blood Pressure - - Pulse - - Temperature - - Respiratory Rate - - Oxygen Saturation - - Inhaled Oxygen Concentration - - Weight 73.4 kg (161 lb 12.8 oz) 025 11:49 AM PATTERN GENERATOR OPERATOR Height 160 cm (5' 3) 05/23/2024 11:49 AM PATTERN GENERATOR OPERATOR Body Mass Index 28.66 05/23/2024 11:49 AM PATTERN GENERATOR OPERATOR Plan of Treatment Health Maintenance Due [...] or Tdap) 06/16/2029 Insurance AETNA MEDICARE GOLD [facility]IC[facility] Address: [address] [address] Care Teams Tax Manager Relationship Specialty Start Date End Date Philip Sanchez MD [address] [place] [address] KANDIS CORRALES [address] PCP - General Family Medicine 03/09/24
[2024-11-03 10:40] LABS: Alanine Aminotransferase 57 U/L (6-35); Albumin Level 4.4 g/dL (3.5-5.1); Alkaline Phosphatase 77 U/L (38-126); Aspartate Amino Transferase 41 U/L (14-36); Bilirubin,Total 0.4 mg/dL (0.2-1.3); Total Protein 6.6 g/dL (6.3-8.2)
== END 2024-11-03 10:07 | disposition home or self-care (01) ==
LOC: ANHGOSHLAB 10:07
PROVIDERS: PCP Family Medicine; Visit Provider Family Medicine
DX: K80.20 Calculus of gallbladder without cholecystitis without obstruction (principal); R79.89 Other specified abnormal findings of blood chemistry
CPT/HCPCS: 36415; 80076

== ENCOUNTER 2024-11-07 09:36 | Outpatient (CLI) | payer MEDICARE, SELFPAY ==
--- NOTE | ~2024-11-07 | MMUS_ITS ---
EXAMINATION: MM diagnostic tala RT w tram and US breast RT limited INDICATION: 63-year old female; palpable right breast lump at 7:00 location felt by care provider at clinical examination. Patient cannot identified the palpable area. COMPARISON: 12/16/2023 through 03/03/2017 TECHNIQUE: Digital breast tomosynthesis CC and MLO views of the RIGHT breast were obtained with compu ter-aided detection to assist in interpretation of the study. FINDINGS: The breasts are almost entirely fatty. There are no suspicious masses, calcifications, architectural distortion or any other abnormality in either breast. No suspicious mammographic abnormality correlates to the area of palpable lump. BILATERAL BREAST ULTRASOUND FINDINGS: There is sonographic abnormality that correlates to the area of palpable lump at 7:00 location. IMPRESSION: No mammographic or sonographic finding correlates to the palpable lump area felt by the care provider at 7:00 location. RECOMMENDATION: Clinical management of patient's palpable lump. BI-RADS 1, NEGATIVE Reviewed, dictated and finalized at location B. IMPRESSION: No mammographic or sonographic finding correlates to the palpable lump area fel t by the care provider at 7:00 location. RECOMMENDATION: Clinical management of patient's palpable lump. BI-RADS 1, NEGATIVE
--- OUTSIDE RECORDS SUMMARY | 2024-11-07 09:49 | XMS_ITS | Clinical Summary ---
Author Organization [facility] Address [address] [place] [phone] Care Team Providers Care Obiee Consultant Name Role Phone Philip Sanchez MD Primary Care Provider +1 -[phone] Allergies No known active allergies Medications ergocalciferol [...] (50 mg total) by mouth nightly Active dfkmyrmu-vsig-v in-folic acid 18-0.4 mg tablet Take by mouth Active Active Problems No known active problems Social History Tobacco Use Types Packs/Day Years Used Date Smoking Tobacco: Never Passive Smoke Exposure: Never Smokeless Tobacco: Never Tobacco Cessation:Counseling Given: Not Answered Comments Unknown Sex and Gender Information Value Date Recorded Sex Assigned at Not on file Legal Sex Female 12:59 AM INTERNET MARKETING ANALYST Gender Identity Not on file Sexual Orientation Not on file Obstetrics History Last Filed Vital Signs Vital Sign Reading Time Taken Comments Blood Pressure - - Pulse - - Temperature - - Respiratory Rate - - Oxygen Saturation - - Inhaled Oxygen Concentration - - Weight 73.4 kg (161 lb 12.8 oz) 025 11:49 AM INTERNET MARKETING ANALYST Height 160 cm (5' 3) 05/23/2024 11:49 AM INTERNET MARKETING ANALYST Body Mass Index 28.66 05/23/2024 11:49 AM INTERNET MARKETING ANALYST Plan of Treatment Health Maintenance Due Date [...] or Tdap) 06/16/2029 Insurance AETNA MEDICARE GOLD [facility] MEDICARE Address: [address] [address] Care Teams Obiee Consultant Relationship Specialty Start Date End Date Philip Sanchez MD [address] [place] [address] KANDIS CORRALES [address] PCP - General Family Medicine 03/09/24
--- OUTSIDE RECORDS SUMMARY | 2024-11-07 09:49 | XMS_ITS | Clinical Summary ---
Author Organization [facility] Care Team Providers Care Assembler 1St Shift Name Role Phone Unavailable Primary Care Provider Unavailabl e Social History Tobacco Use Types Packs/Day Years Used Date Smoking Tobacco: Never Assessed Comments Unknown Sex and Gender Information Value Date Recorded Sex Assigned at Not on file Legal Sex Female 1:35 PM MASTER CONTROL OPERATOR Gender Identity Not on file Sexual [...]
--- OUTSIDE RECORDS SUMMARY | 2024-11-07 09:49 | XMS_ITS | Referral Summary ---
Author Organization [facility] Address [address] [place] [phone] Care Team Providers Care Motorcycle Tester Name Role Phone Philip Sanchez MD Primary Care Provider +1 -[phone] Allergies No known active allergies Medications ergocalciferol [...] (50 mg total) by mouth nightly Active xbtdsfwq-yuov-b in-folic acid 18-0.4 mg tablet Take by mouth Active Active Problems No known active problems Social History Tobacco Use Types Packs/Day Years Used Date Smoking Tobacco: Never Passive Smoke Exposure: Never Smokeless Tobacco: Never Tobacco Cessation:Counseling Given: Not Answered Comments Unknown Sex and Gender Information Value Date Recorded Sex Assigned at Not on file Legal Sex Female 12:59 AM BOARDING MOTHER Gender Identity Not on file Sexual Orientation Not on file Last Filed Vital Signs Vital Sign Reading Time Taken Comments Blood Pressure - - Pulse - - Temperature - - Respiratory Rate - - Oxygen Saturation - - Inhaled Oxygen Concentration - - Weight 73.4 kg (161 lb 12.8 oz) 025 11:49 AM BOARDING MOTHER Height 160 cm (5' 3) 05/23/2024 11:49 AM BOARDING MOTHER Body Mass Index 28.66 05/23/2024 11:49 AM BOARDING MOTHER Plan of Treatment Not on file Insurance AETNA MEDICARE GOLD Care Teams Motorcycle Tester Relationship Specialty Start Date End Date Philip Sanchez MD [address] [facility] [address] [place] [id number] PCP - General Family Medicine 03/09/24
== END 2024-11-07 09:37 | disposition home or self-care (01) ==
LOC: CHSIMG 09:37
PROVIDERS: PCP Family Medicine; Visit Provider Family Medicine
DX: N63.13 Unspecified lump in the right breast, lower outer quadrant (principal)
CPT/HCPCS: 76642; 77061; 77065; G0279

== ENCOUNTER 2024-12-13 13:18 | Outpatient (CLI) | payer MEDICARE, SELFPAY ==
--- OUTSIDE RECORDS SUMMARY | 2017-03-03 01:00 | XMS_ITS | Encounter Summary ---
Author Organization [facility] Healthcare Address [address] [place] [address] Care Team Providers Care Take Away Worker Name Role Phone Unavailable Primary Care Provider Unavailabl e Reason for Referral * Diagnostic Imaging (Routine) - Pending Review Specialty Diagnoses / Procedures Referred By Contac t Referred To Contact Procedures Breast Imaging Screening Outside Reference Transcribed Order, Provider Referral ID Status Reason Start Date Expiration Date V isits Requested Visits Authorized [id number] Pending Review 12/08/2024 01/07/2026 1 1 Reason for Visit * Diagnostic Imaging (Routine) - Pending Review Specialty Diagnoses / Procedures Referred By Contac t Referred To Contact Procedures Breast Imaging Screening Outside Reference Transcribed Order, Provider Referral ID Status Reason Start Date Expiration Date V isits Requested Visits Authorized [id number] Pending Review 12/08/2024 01/07/2026 1 1 Encounter Details Date Type Department Care Team (Late st Contact Info) Description 03/03/2017 Hospital Encounter [facility] [address] [place] [phone] Social History Tobacco Use Types Packs/Day Years Used Date Smoking Tobacco: Never Passive Smoke Exposure: Never Smokeless Tobacco: Never Comments Unknown Sex and Gender Information Value Date Recorded Sex Assigned at Not on file Legal Sex Female 12:59 AM STRATEGIC PLANNING SPECIALIST Gender Identity Not on file Sexual Orientation Not on file documented as of this encounter Plan of Treatment Not on file documented as of this encounter Procedures Procedure Name Priority Date/Time Associated Diagnosis Comments BREAST IMAGING MG SCREENING OUTSIDE REFERENCE Routine 03/03/2017 12:00 AM STRATEGIC PLANNING SPECIALIST documented in this encounter Results * Breast Imaging Screening Outside Reference (03/03/2017 12:00 AM STRATEGIC PLANNING SPECIALIST) Impressions [facility] - 12/08/2024 5:17 PM CDT These images are for Reference purposes only and have not been reviewed by [facility] Radiology. There will be no report generated by a [facility] Radiologist. Narrative [facility] - 12/08/2024 5:17 PM CDT EXAMINATION: Images For Reference Purposes Only us Provider Transcribed Order IMG MAMMO PROCEDURES Final Result [facility] documented in this encounter Visit Diagnoses Not on filedocumented in this encounter
--- OUTSIDE RECORDS SUMMARY | 2018-07-01 | XMS_ITS | Encounter Summary ---
Author Organization [facility] Healthcare Address [address] [place] [address] Care Team Providers Care Reinforcing Steel Worker Name Role Phone Unavailable Primary Care Provider Unavailabl e Reason for Referral * Diagnostic Imaging (Routine) - Pending Review Specialty Diagnoses / Procedures Referred By Contac t Referred To Contact Procedures Breast Imaging Screening Outside Reference Transcribed Order, Provider Referral ID Status Reason Start Date Expiration Date V isits Requested Visits Authorized [id number] Pending Review 12/08/2024 01/07/2026 1 1 Reason for Visit * Diagnostic Imaging (Routine) - Pending Review Specialty Diagnoses / Procedures Referred By Contac t Referred To Contact Procedures Breast Imaging Screening Outside Reference Transcribed Order, Provider Referral ID Status Reason Start Date Expiration Date V isits Requested Visits Authorized [id number] Pending Review 12/08/2024 01/07/2026 1 1 Encounter Details Date Type Department Care Team (Late st Contact Info) Description 07/01/2018 Hospital Encounter [facility] [address] [place] [phone] Social History Tobacco Use Types Packs/Day Years Used Date Smoking Tobacco: Never Passive Smoke Exposure: Never Smokeless Tobacco: Never Comments Unknown Sex and Gender Information Value Date Recorded Sex Assigned at Not on file Legal Sex Female 12:59 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 There will be no report generated by a [facility] Radiologist. Narrative [facility] - 12/08/2024 5:17 PM CDT EXAMINATION: Images For Reference Purposes Only us Provider Transcribed Order IMG MAMMO PROCEDURES Final Result [facility] documented in this encounter Visit Diagnoses Not on filedocumented in this encounter
--- OUTSIDE RECORDS SUMMARY | 2020-02-22 01:00 | XMS_ITS | Encounter Summary ---
Author Organization [facility] Healthcare Address [address] [place] [address] Care Team Providers Care Printed Circuit Designer Name Role Phone Unavailable Primary Care Provider Unavailabl e Reason for Referral * Diagnostic Imaging (Routine) - Pending Review Specialty Diagnoses / Procedures Referred By Contac t Referred To Contact Procedures Breast Imaging Screening Outside Reference Transcribed Order, Provider Referral ID Status Reason Start Date Expiration Date V isits Requested Visits Authorized [id number] Pending Review 12/08/2024 01/07/2026 1 1 Reason for Visit * Diagnostic Imaging (Routine) - Pending Review Specialty Diagnoses / Procedures Referred By Contac t Referred To Contact Procedures Breast Imaging Screening Outside Reference Transcribed Order, Provider Referral ID Status Reason Start Date Expiration Date V isits Requested Visits Authorized [id number] Pending Review 12/08/2024 01/07/2026 1 1 Encounter Details Date Type Department Care Team (Late st Contact Info) Description 02/22/2020 Hospital Encounter [facility] [address] [place] [id number] Social History Tobacco Use Types Packs/Day Years Used Date Smoking Tobacco: Never Passive Smoke Exposure: Never Smokeless Tobacco: Never Comments Unknown Sex and Gender Information Value Date Recorded Sex Assigned at Not on file 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 Gender Identity Not on file Sexual Orientation Not on file documented as of this encounter Plan of Treatment Not on file documented as of this encounter Procedures Procedure Name Priority Date/Time Associated Diagnosis Comments BREAST IMAGING MG SCREENING OUTSIDE REFERENCE Routine 02/22/2020 12:00 AM MUSIC LIBRARY ASSISTANT documented in this encounter Results * Breast Imaging Screening Outside Reference (02/22/2020 12:00 AM MUSIC LIBRARY ASSISTANT) Impressions [facility] - 12/08/2024 5:17 PM CDT These images are for Reference purposes only and have not been reviewed by [facility]. There will be no report generated by a [facility] Radiologist. Narrative [facility] - 12/08/2024 5:17 PM CDT EXAMINATION: Images For Reference Purposes Only us Provider Transcribed Order IMG MAMMO PROCEDURES Final Result [facility] documented in this encounter Visit Diagnoses Not on filedocumented in this encounter
[2024-12-13 13:58] LABS: Alanine Aminotransferase 49 U/L (6-35); Albumin Level 4.6 g/dL (3.5-5.1); Alkaline Phosphatase 78 U/L (38-126); Amylase 104 U/L (30-110); Anion Gap 11 mmol/L (4-12); Aspartate Amino Transferase 38 U/L (14-36); Bilirubin,Total 0.5 mg/dL (0.2-1.3); Blood Urea Nitrogen 21 mg/dL (7-17); Calcium 9.8 mg/dL (8.4-10.2); Carbon Dioxide 23 mmol/L (22-30); Chloride 102 mmol/L (98-107); Estimated Glomerular Filt Rate 58; Glucose 100 mg/dL (65-110); Lipase 542 U/L (23-300); Potassium 4.4 mmol/L (3.4-5.0); Sodium 136 mmol/L (137-145); Total Protein 7.3 g/dL (6.3-8.2)
--- OUTSIDE RECORDS SUMMARY | 2024-12-13 14:52 | XMS_ITS | Encounter Summary ---
Author Organization [facility] Address [address] [facility] [address] [place] [address] Phone Care Team Providers Care Plumber'S Assistant Name Role Phone Philip Sanchez MD Primary Care Provider [phone] Reason for Visit * Reason Onset Date Comments Letters 11/21/2024 Encounter Details Date Type Department Care Team (Late st Contact Info) Description 11/21/[address] [facility] Medicine Surgery [address] [facility] Floor 8 [place] [address] Maisha Velasquez PA [address] [facility] [phone] [place] [address] Letters Social History Tobacco Use Types Packs/Day Years Used Date Smoking Tobacco: Never Passive Smoke Exposure: Never Smokeless Tobacco: Never Comments Unknown Sex and Gender Information Value Date Recorded Sex Assigned at Not on file Legal Sex Female 12:59 AM CARDIOLOGY NURSE PRACTITIONER Gender Identity Not on file Sexual Orientation Not on file documented as of this encounter Miscellaneous Notes * Telephone Encounter - Miriam Smith - 11/21/2024 3:58 PM CDT A letter has been created on patient's chart as we were unable to reach the recipient, could I request this letter be printed and sent via mail. Miriam Sexton documented in this encounter Plan of Treatment Not on file documented as of this encounter Visit Diagnoses Not on filedocumented in this encounter Care Teams Plumber'S Assistant Relationship Specialty Start Date End Date Philip Sanchez MD [facility] [address] [address] PCP - General Family Medicine 03/09/24 documented as of this encounter
--- OUTSIDE RECORDS SUMMARY | 2024-12-13 14:52 | XMS_ITS | Clinical Summary ---
Author Organization [facility] Address [address] [place] [address] Care Team Providers Care Flag Car Driver Name Role Phone Philip Sanchez MD Primary Care Provider [phone] Allergies No known active allergies Medications ergocalciferol [...] (50 mg total) by mouth nightly Active zkzgggms-udet-a in-folic acid 18-0.4 mg tablet Take by mouth Active Active Problems No known active problems Encounters Date Type Department Care Team Description 12/08/2024 5:35 PM CDT - 12/08/2024 11:59 PM CDT Hospital Encounter [facility] [address] [place] [address] Discharge Disposition: Discharge to home or self care 12/07/2024 Orders Only [facility] [address] [place] [address] Kenji Mcdonough MD 11/22/2024 Orders Only [facility] [address] [place] [address] Floor 8 [place] [phone] Maisha Velasquez PA 11/21/2024 Telephone [facility] [address] [facility] 8 [place] [phone] Maisha Velasquez PA Patient issue/concern 11/21/[address] [facility] [address] [place] [address] 8 [place] [phone] Maisha Velasquez PA Letters 11/21/[address] [facility] [address] [place] [address] 8 [place] [address] Janet Power NP Breast lump on right side at 7 o'clock position (Primary Dx) [address] [phone] Cheyanne Terrazas RN 2nd Opinion; Appointment Request 11/07/2024 12:05 AM CDT - 11/07/2024 11:59 PM CDT Hospital Encounter [facility] [address] [place] [address] Discharge Disposition: Discharge to home or self care 11/07/2024 - 11/07/2024 11:59 PM CDT Hospital Encounter [facility] [address] [place] [address] Discharge Disposition: Discharge to home or self care from Last 3 Months Social History Tobacco Use Types Packs/Day Years Used Date Smoking Tobacco: Never Passive Smoke Exposure: Never Smokeless Tobacco: Never Tobacco Cessation:Counseling Given: Not Answered Comments Unknown Sex and Gender Information Value Date Recorded Sex Assigned at Not on file Legal Sex Female 12:59 AM LAUNDRY MANAGER Gender Identity Not on file Sexual Orientation Not on file Obstetrics History Last Filed Vital Signs Vital Sign Reading Time Taken Comments Blood Pressure - - Pulse - - Temperature - - Respiratory Rate - - Oxygen Saturation - - Inhaled Oxygen Concentration - - Weight 73.4 kg (161 lb 12.8 oz) 025 11:49 AM LAUNDRY MANAGER Height 160 cm (5' 3) 05/23/2024 11:49 AM LAUNDRY MANAGER Body Mass Index 28.66 05/23/2024 11:49 AM LAUNDRY MANAGER Plan of Treatment Health Maintenance Due Date Last Done Comments Colon Cancer Screening-Colonoscopy 1960 Depression Screening 1960 Fall Risk Assessment 1960 Hepatitis C Screening 1960 Osteoporosis Screening-Bone Density Scan 1960 Zoster Vaccine (1 of 2) 2008 Pneumococcal vaccine 65+ (2 of 2 - PCV20 or PCV21) 06/16/2020 06/17/2019 Well Visit 65+ 11/09/2023 Influenza Vaccine (#1) 2024 12/29/2019, 2018 Breast Cancer Screening-Mammogram 11/07/2025 025 DTaP/Tdap/Td Vaccine (3 - Td or Tdap) 06/16/2029 06/17/2019, 10/21/2007, 04/06/1991 Hepatitis B Screening Completed 12/03/2005 , 05/30/2005, 04/30/2005 Procedures Procedure Name Priority Date/Time Associated Diagnosis Comments BREAST IMAGING MG DIAGNOSTIC OUTSIDE CONSULT Routine 12/08/2024 5:35 PM CDT SCREENING MAMMOGRAM 2D BILATERAL Schedule Routine, Read Routine (OP Routine) 11/07/2024 11:19 AM CDT BREAST IMAGING US OUTSIDE REFERENCE Routine 11/07/2024 12:05 AM CDT BREAST IMAGING MG DIAGNOSTIC OUTSIDE REFERENCE Routine 11/07/2024 12:00 AM CDT from Last 3 Months Results * Breast Imaging DX Outside Consult (12/08/2024 5:35 PM CDT) Anatomical Region Laterality Modality Breast N/A Mammography 12/09/2024 10:1 6 AM CDT Impressions 12/09/2024 10:51 AM CDT No suspicious mammographic abnormality in the right breast including in the area of palpable concern, although this area was not marked by a skin marker. OVERALL FINAL ASSESSMENT: BI-RADS Category 1: Negative. RECOMMENDATION: 1. Annual screening mammography due December 2024. 2. If there is continued concern for palpable abnormality, repeat right breast ultrasound would be recommended. NOTE: The findings, conclusions and recommendations within this report do not replace the initial findings, conclusions and recommendations made at the facility where the study was performed based upon the imaging and clinical condition at that time. Review of the prior report and correlation with the clinical history are necessary. The provided images may or may not represent the [place] source data set and thus may contain changes which may lower the sensitivity of the second opinion interpretation. Dictated by: Mckenzie Yates MD The radiology attending physician has personally reviewed this study, and had reviewed and/or edited this written report and agrees with it. Electronically signed by: Ovidio Dhillon MD Narrative 12/09/2024 10:51 AM CDT EXAMINATION: REVIEW AND INTERPRETATION OF OUTSIDE IMAGING FACILITY PERFORMING OUTSIDE IMAGING: [facility] EXAM(S) REVIEWED: 1. RIGHT UNILATERAL DIAGNOSTIC MAMMOGRAM WITH TOMOSYNTHESIS, 11/07/2024 DATE OF INTERPRETATION: 12/09/2024 HISTORY: 64-year-old woman who presented to outside hospital with a palpable right lower outer breast lump. COMPARISON: Multiple prior studies, most recently outside right breast ultrasound 11/07/2024, screening mammogram 12/16/2023 BREAST PARENCHYMAL COMPOSITION: The breasts are almost entirely fatty. FINDINGS: Right diagnostic mammogram with tomosynthesis dated 11/07/2024: No suspicious mass, architectural distortion or asymmetry in the right breast, including in the area of palpable concern. Per outside ultrasound report, in the area of palpable concern, there is no suspicious sonographic abnormality. us Maisha [facility] IMG MAMMO PROCEDURES Final Resu lt * Screening Mammogram 2D Bilateral (11/07/2024 11:19 AM CDT) Anatomical Region Laterality Modality Breast Bilateral Mammography Historical Provider IMG MAMMO PROCEDURES Miriam l Result * Breast Imaging US Outside Reference (11/07/2024 12:05 AM CDT) Impressions RAD_MAMMO_[facility] - 12/07/2024 11:17 AM CDT These images are for Reference purposes only and have not been reviewed by [facility]iology. There will be no report generated by a [facility] Radiologist. Narrative [facility]_MAMMO_[facility] - 12/07/2024 11:17 AM CDT EXAMINATION: Images For Reference Purposes Only us Provider Transcribed Order IMG MAMMO PROCEDURES Final Result [facility] * Breast Imaging Diagnostic Outside Reference (11/07/2024 12:00 AM CDT) Impressions [facility] - 12/07/2024 11:17 AM CDT These images are for Reference purposes only and have not been reviewed by [facility]. There will be no report generated by a [facility] Radiologist. Narrative [facility]_M[facility]MO[facility] - 12/07/2024 11:17 AM CDT EXAMINATION: Images For Reference Purposes Only us Provider Transcribed Order IMG MAMMO PROCEDURES Final Result [facility] from Last 3 Months Insurance [facility] MEDICARE [facility] Care Teams Flag Car Driver Relationship Specialty Start Date End Date Philip Sanchez MD [address] [place] [address] [place] [address] PCP - General Family Medicine 03/09/24
--- OUTSIDE RECORDS SUMMARY | 2024-12-13 14:52 | XMS_ITS | Clinical Summary ---
Author Organization [facility] Care Team Providers Care Wall To Wall Carpet Installer Name Role Phone Unavailable Primary Care Provider Unavailabl e Social History Tobacco Use Types Packs/Day Years Used Date Smoking Tobacco: Never Assessed Comments Unknown Sex and Gender Information Value Date Recorded Sex Assigned at Not on file Legal Sex Female 1:35 PM DELIVERY ASSISTANT Gender Identity Not on file Sexual Orientation Not on file Plan of Treatment Health Maintenance Due Date Last Done Comments Hepatitis C Virus (HCV) Screening 1960 Cologuard 11/09/2003 Colonoscopy 11/09/2003 Colorectal Cancer Screening 11/09/2003 Immunochemical Fecal Occult Blood 11/09/2003 Zoster Immunization (1 of 2) 2008 Pneumococcal Immunization (5 0+ years) (2 of 2 - PCV20 or PCV21) 06/16/2020 06/17/2019 SARS-COV-2 Immunization ( - 2023- season) 2023 Influenza Immunization (#1) 2024 12/13/2018 [...]
--- OUTSIDE RECORDS SUMMARY | 2024-12-13 14:52 | XMS_ITS | Encounter Summary ---
Author Organization [facility] Address [address] [facility] [address] [place] [address] Phone Care Team Providers Care Slitter Service And Setter Name Role Phone Philip Sanchez MD Primary Care Provider [phone] Reason for Visit * Reason Onset Date Comments Patient issue/concern 11/21/2024 Encounter Details Date Type Department Care Team (Late st Contact Info) Description 11/21/2024 Telephone [facility] Medicine Surgery [address] [facility] Floor 8 [place] [address] Maisha Velasquez PA [address] [facility] [phone] [place] [address] Patient issue/concern Social History Tobacco Use Types Packs/Day Years Used Date Smoking Tobacco: Never Passive Smoke Exposure: Never Smokeless Tobacco: Never Comments Unknown Sex and Gender Information Value Date Recorded Sex Assigned at Not on file Legal Sex Female 12:59 AM CITRUS PEELER Gender Identity Not on file Sexual Orientation Not on file documented as of this encounter Miscellaneous Notes * Telephone Encounter - Luis Miriam - 11/21/2024 4:11 PM CDT Patient Query: Was an attempt to transfer to the assigned clinical staff or backline? No Reason for call?: Patient is scheduled for an appointment with Maisha Velasquez PA and Diagnostic Mammogram and Ultrasound ,but according to patient she had her imaging on 11/07/2024 ,she is not sure if her insurance will cover this new imaging ,please check and call back Who is the caller: Patient What is the best number for them to contact for a call back: [phone] Last office visit: 11/21/2024 Date of Surgery: No surgery found documented in this encounter Plan of Treatment Not on file documented as of this encounter Visit Diagnoses Not on filedocumented in this encounter Care Teams Slitter Service And Setter Relationship Specialty Start Date End Date Philip Sanchez MD [address] [facility] [address] [address] PCP - General Family Medicine 03/09/24 documented as of this encounter
== END 2024-12-13 13:19 | disposition home or self-care (01) ==
LOC: ANHSURGERY 13:22
PROVIDERS: PCP Family Medicine; Visit Provider Surgery
DX: Z01.812 Encounter for preprocedural laboratory examination (principal); K80.20 Calculus of gallbladder without cholecystitis without obstruction
CPT/HCPCS: 36415; 80053; 82150; 83690; 86850; 86900; 86901

== ENCOUNTER 2024-12-21 02:39 | Day surgery (SDC) | payer MEDICARE, SELFPAY ==
--- OUTSIDE RECORDS SUMMARY | 2017-03-03 01:00 | XMS_ITS | Encounter Summary ---
Author Organization [facility] Healthcare Address [address] [place] [address] Care Team Providers Care Administration Vice President Name Role Phone Unavailable Primary Care Provider Unavailabl e Reason for Referral * Diagnostic Imaging (Routine) - Pending Review Specialty Diagnoses / Procedures Referred By Contac t Referred To Contact Procedures Breast Imaging Screening Outside Reference Transcribed Order, Provider Referral ID Status Reason Start Date Expiration Date V isits Requested Visits Authorized [id number] Pending Review 12/08/2024 01/07/2026 1 1 Reason for Visit * Diagnostic Imaging (Routine) - Pending Review Specialty Diagnoses / Procedures Referred By Contac t Referred To Contact Procedures Breast Imaging Screening Outside Reference Transcribed Order, Provider Referral ID Status Reason Start Date Expiration Date V isits Requested Visits Authorized [id number] Pending Review 12/08/2024 01/07/2026 1 1 Encounter Details Date Type Department Care Team (Late st Contact Info) Description 03/03/2017 Hospital Encounter [facility] [address] [place] [phone] Social History Tobacco Use Types Packs/Day Years Used Date Smoking Tobacco: Never Passive Smoke Exposure: Never Smokeless Tobacco: Never Comments Unknown Sex and Gender Information Value Date Recorded Sex Assigned at Not on file Legal Sex Female 12:59 AM RADIO COMMUNICATIONS MECHANICIAN Gender Identity Not on file Sexual Orientation Not on file documented as of this encounter Plan of Treatment Not on file documented as of this encounter Procedures Procedure Name Priority Date/Time Associated Diagnosis Comments BREAST IMAGING MG SCREENING OUTSIDE REFERENCE Routine 03/03/2017 12:00 AM RADIO COMMUNICATIONS MECHANICIAN documented in this encounter Results * Breast Imaging Screening Outside Reference (03/03/2017 12:00 AM RADIO COMMUNICATIONS MECHANICIAN) Impressions [facility] - 12/08/2024 5:17 PM CDT These images are for Reference purposes only and have not been reviewed by [facility] Radiology. There will be no report generated by a [facility] Radiologist. Narrative [facility] - 12/08/2024 5:17 PM CDT EXAMINATION: Images For Reference Purposes Only us Provider Transcribed Order IMG MAMMO PROCEDURES Final Result [facility] documented in this encounter Visit Diagnoses Not on filedocumented in this encounter
--- OUTSIDE RECORDS SUMMARY | 2018-07-01 | XMS_ITS | Encounter Summary ---
Author Organization [facility] Healthcare Address [address] [place] [address] Care Team Providers Care Specimen Boss Name Role Phone Unavailable Primary Care Provider Unavailabl e Reason for Referral * Diagnostic Imaging (Routine) - Pending Review Specialty Diagnoses / Procedures Referred By Contac t Referred To Contact Procedures Breast Imaging Screening Outside Reference Transcribed Order, Provider Referral ID Status Reason Start Date Expiration Date V isits Requested Visits Authorized [id number] Pending Review 12/08/2024 01/07/2026 1 1 Reason for Visit * Diagnostic Imaging (Routine) - Pending Review Specialty Diagnoses / Procedures Referred By Contac t Referred To Contact Procedures Breast Imaging Screening Outside Reference Transcribed Order, Provider Referral ID Status Reason Start Date Expiration Date V isits Requested Visits Authorized [id number] Pending Review 12/08/2024 01/07/2026 1 1 Encounter Details Date Type Department Care Team (Late st Contact Info) Description 07/01/2018 Hospital Encounter [facility] [address] [place] [phone] Social History Tobacco Use Types Packs/Day Years Used Date Smoking Tobacco: Never Passive Smoke Exposure: Never Smokeless Tobacco: Never Comments Unknown Sex and Gender Information Value Date Recorded Sex Assigned at Not on file Legal 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 There will be no report generated by a [facility] Radiologist. Narrative [facility] - 12/08/2024 5:17 PM CDT EXAMINATION: Images For Reference Purposes Only us Provider Transcribed Order IMG MAMMO PROCEDURES Final Result [facility] documented in this encounter Visit Diagnoses Not on filedocumented in this encounter
--- OUTSIDE RECORDS SUMMARY | 2020-02-22 01:00 | XMS_ITS | Encounter Summary ---
Author Organization [facility] Healthcare Address [address] [place] [address] Care Team Providers Care Carton Making Machine Operator Name Role Phone Unavailable Primary Care Provider Unavailabl e Reason for Referral * Diagnostic Imaging (Routine) - Pending Review Specialty Diagnoses / Procedures Referred By Contac t Referred To Contact Procedures Breast Imaging Screening Outside Reference Transcribed Order, Provider Referral ID Status Reason Start Date Expiration Date V isits Requested Visits Authorized [id number] Pending Review 12/08/2024 01/07/2026 1 1 Reason for Visit * Diagnostic Imaging (Routine) - Pending Review Specialty Diagnoses / Procedures Referred By Contac t Referred To Contact Procedures Breast Imaging Screening Outside Reference Transcribed Order, Provider Referral ID Status Reason Start Date Expiration Date V isits Requested Visits Authorized [id number] Pending Review 12/08/2024 01/07/2026 1 1 Encounter Details Date Type Department Care Team (Late st Contact Info) Description 02/22/2020 Hospital Encounter [facility]iology [facility] [address] [place] [phone] Social History Tobacco Use Types Packs/Day Years Used Date Smoking Tobacco: Never Passive Smoke Exposure: Never Smokeless Tobacco: Never Comments Unknown Sex and Gender Information Value Date Recorded Sex Assigned at Not on file 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 Gender Identity Not on file Sexual Orientation Not on file documented as of this encounter Plan of Treatment Not on file documented as of this encounter Procedures Procedure Name Priority Date/Time Associated Diagnosis Comments BREAST IMAGING MG SCREENING OUTSIDE REFERENCE Routine 02/22/2020 12:00 AM EVENT TECHNICIAN documented in this encounter Results * Breast Imaging Screening Outside Reference (02/22/2020 12:00 AM EVENT TECHNICIAN) Impressions [facility] - 12/08/2024 5:17 PM CDT These images are for Reference purposes only and have not been reviewed by [facility]iology. There will be no report generated by a [facility] Radiologist. Narrative [facility] - 12/08/2024 5:17 PM CDT EXAMINATION: Images For Reference Purposes Only us Provider Transcribed Order IMG MAMMO PROCEDURES Final Result [facility] documented in this encounter Visit Diagnoses Not on filedocumented in this encounter
[2024-12-08 13:15] VITALS: BMI 29.2
--- NOTE | 2024-12-08 13:29 | PC.NURSE ---
Report to the Outpatient Waiting Room, entrance under the green pavilion located off [facility], at time __0730am on date . Planned Procedure Time: __0930am .? Time changes happen often and if your time is changed the preop area will call you the afternoon before. - You and your visitor will be asked to self-screen and do not enter if you have any COVID symptoms. Please call surgeon if you need to reschedule. - A mask is optional within the hospital at this time. Patients may have clear liquids (water, carbonated beverages, clear teas, apple juice) until 3 hours prior to surgery with a maximum of 20 ounces. - No food from midnight until time of surgery and no smoking, or chewing tobacco (or any form of nicotine). No chewing gum, candy or mints.(0630am) Take only the following medications with a SIP of water on the morning of surgery: ____Buproprion DO NOT STOP ANY OF YOUR OTHER PRESCRIPTION MEDICATIONS PRIOR TO SURGERY EXCEPT THE FOLLOWING Hold all vitamins and supplements for 3 days per anesthesiologist. Medications to discontinue per physician Meloxicam prior to surgery- pt to check with Dr Heck office Date to take last dose____pending Please no make-up, nail bangladeshi, hairspray, perfume, deodorant, or body powder the day of surgery.? No jewelry (including any body piercings) or valuables the day of surgery, leave them at home.? Please take a shower or bath the night before, or the morning of, surgery with an antibacterial soap. GOLD DIAL? Wear comfortable, loose fitting clothing.? - Jewelry must be removed prior to entering the operating room.? Rings and piercings that are not removed may be cut off. - The hospital will not accept responsibility for valuables.? - Please leave all valuables, including medications, at home the day of surgery. If you are going home after surgery, a licensed truck driver must drive you home.? - NO public transportation without another adult if you receive anesthesia. - We recommend that an adult stay with you for 24 hours following discharge. - We also recommend that you do not drive, make important decision, drink alcoholic beverages, or take any drugs that were not prescribed by your health care provider for at least 24 hours after your discharge time. Follow any additional instructions given to you from your surgeon. Telephone instructions given to ___Patient and asked if any additional questions and then verbalized understanding. Patient advised to call surgeon office or pre surgery nurse liaison [phone] if any additional questions.
[2024-12-21] VITALS (10 sets, daily range): BP systolic 136–172; BP diastolic 72–98; PULSE 64–78; RESP 12–20; TEMP 36.4; O2SAT 95–100; BMI 28.8
--- OUTSIDE RECORDS SUMMARY | 2024-12-21 02:41 | XMS_ITS | Encounter Summary ---
Author Organization [facility] Address [address] [facility] [address] [place] [address] Phone Care Team Providers Care Utility Systems Repairer Operator Name Role Phone Philip Sanchez MD Primary Care Provider [phone] Reason for Visit * Reason Onset Date Comments Patient issue/concern 11/21/2024 Encounter Details Date Type Department Care Team (Late st Contact Info) Description 11/21/2024 Telephone [facility] Medicine Surgery [address] [facility] Floor 8 [place] [address] Maisha Velasquez PA [address] [facility] [phone] [place], [place] [id number] Patient issue/concern Social History Tobacco Use Types Packs/Day Years Used Date Smoking Tobacco: Never Passive Smoke Exposure: Never Smokeless Tobacco: Never Comments Unknown Sex and Gender Information Value Date Recorded Sex Assigned at Not on file Legal Sex Female 12:59 AM STORAGE SOLUTIONS 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 Gender Identity Not on file Sexual Orientation Not on file documented as of this encounter Miscellaneous Notes * Telephone Encounter - LuisMiriam - 11/21/2024 4:11 PM CDT Patient Query: [...] them to contact for a call back: [phone] Last office visit: 11/21/2024 Date of Surgery: No surgery found documented in this encounter Plan of Treatment Not on file documented as of this encounter Visit Diagnoses Not on filedocumented in this encounter Care Teams Utility Systems Repairer Operator Relationship Specialty Start Date End Date Philip Sanchez MD [facility] [address] [address] PCP - General Family Medicine 03/09/24 documented as of this encounter
--- OUTSIDE RECORDS SUMMARY | 2024-12-21 02:41 | XMS_ITS | Clinical Summary ---
Author Organization [facility] Care Team Providers Care Psychometrist Name Role Phone Unavailable Primary Care Provider Unavailabl e Social History Tobacco Use Types Packs/Day Years Used Date Smoking Tobacco: Never Assessed Comments Unknown Sex and Gender Information Value Date Recorded Sex Assigned at Not on file Legal Sex Female 1:35 PM PALLIATIVE CARE COORDINATOR Gender Identity Not on file Sexual Orientation [...]
--- OUTSIDE RECORDS SUMMARY | 2024-12-21 02:41 | XMS_ITS | Clinical Summary ---
Author Organization [facility] Address [address] [place] [id number] Care Team Providers Care Coal Mine Inspector Name Role Phone Philip Sanchez MD Primary Care Provider [phone] Allergies Active Allergy Reactions Criticality Noted Date Comments Latex Rash Medium 12/15/2024 Tetracyclines Rash Medium 12/15/2024 Medications ergocalciferol (VITAMIN D) 50,000 unit capsule Take 1 capsule (50,000 Units total) by mouth once a week 5 Active buPROPion SR (WELLBUTRIN SR) 150 mg 12 hr tablet Take 1 tablet (150 mg total) by mouth 2 (two) times a day Active qapmetan-dsqx-p in-folic acid 18-0.4 mg tablet Take by mouth Active traZODone (DESYREL) 50 mg tablet Take 1 tablet (50 mg total) by mouth 5 Active meloxicam (MOBIC) 15 mg tablet Take 1 tablet (15 mg total) by mouth daily 5 Active spironolactone (ALDACTONE) 50 mg tablet by other route 5 Active spironolactone (ALDACTONE) 50 mg tablet Take 1 tablet (50 mg total) by mouth daily 12/16/19 25 Discontinu ed(Patient Reported) traZODone (DESYREL) 50 mg tablet Take 1 tablet (50 mg total) by mouth nightly 12/16/19 25 Discontinu ed(Patient Reported) Active Problems No known active problems Encounters Date Type Department Care Team Description 12/15/2024 8:30 AM CDT Office Visit [facility] Medicine Surgery [address] [place] [address] Maisha Velasquez PA Mass of lower outer quadrant of right breast (Primary Dx); Family history of breast cancer 12/08/2024 5:35 PM CDT - 12/08/2024 11:59 PM CDT Hospital Encounter [facility] [address] [place] [phone] Discharge Disposition: Discharge to home or self care 12/07/2024 Orders Only [facility] ([facility]) [address] [place] [phone] Kenji Mcdonough MD 11/22/2024 Orders Only [facility] [address] [address] Maisha Velasquez PA 11/21[facility] [address] [place] [phone] Maisha Velasquez PA Patient issue/concern 11/21/2024 Telephone [facility] Medicine Surgery [address] [place] [phone] Maisha Velasquez PA Letters 11/21/2024 Orders Only [facility] Medicine Surgery [address] [place] [phone] Janet Power NP Breast lump on right side at 7 o'clock position (Primary Dx) 2024 Telephone [place] [id number] [place] [address] Cheyanne Terrazas RN 2nd Opinion; Appointment Request 11/07/2024 12:05 AM CDT - 11/07/2024 11:59 PM CDT Hospital Encounter [facility] ([facility]) [address] [place] [phone] Discharge Disposition: Discharge to home or self care 11/07/2024 - 11/07/2024 11:59 PM CDT Hospital Encounter [facility] ([facility]) [address] [place] [phone] Discharge Disposition: Discharge to home or self care from Last 3 Months Immunizations Immunization Administration Dates Next Due Hep A, Adult 10/21/2007,12/03/2005 Hep B Vaccine 12/03/2005,05/30/2005,04/30/2005 IPV 10/21/2007 Influenza, Quadrivalent, Elvia l Culture-based MDCK, Preservative Free, Antibiotic Free, Intramuscular 12/29/2019 Influenza, Quadrivalent, Rec ombinant, Egg Free, Preservative Free, Intramuscular 12/13/2018 Pneumococcal Conjugate PCV 13 06/17/2019 Td, Not Adsorbed 04/06/1991 Tdap 06/17/2019,10/21/2007 Surgical History Surgery Date Site/Laterality Comments OVARY SURGERY Medical History Medical History Date Comments Depression Overweight Family History Medical History Relation Name Comments Breast cancer Paternal Grandmother Relation Name Status Comments Paternal Grandmother Social History Tobacco Use Types Packs/Day Years Used Date Smoking Tobacco: Never Passive Smoke Exposure: Never Smokeless Tobacco: Never Tobacco Cessation:Counseling Given: Not Answered Comments Unknown Sex and Gender Information Value Date Recorded Sex Assigned at Not on file Legal Sex Female 12:59 AM WORD PROCESSING SPECIALIST Gender Identity Not on file Sexual Orientation Not on file Obstetrics History Last Filed Vital Signs Vital Sign Reading Time Taken Comments Blood Pressure - - Pulse - - Temperature - - Respiratory Rate - - Oxygen Saturation - - Inhaled Oxygen Concentration - - Weight 75.6 kg (166 lb 9.6 oz) 12/15/2024 8:28 A M CDT Height 160 cm (5' 2.99) 12/15/2024 8:28 AM CDT Body Mass Index 29.52 12/15/2024 8:28 AM CDT Plan of Treatment Health Maintenance Due Date Last Done Comments Colon Cancer Screening-Colonoscopy 1960 Depression Screening 1960 Fall Risk Assessment 1960 Hepatitis C Screening 1960 Osteoporosis Screening-Bone Density Scan 1960 Zoster Vaccine (1 of 2) 2008 Pneumococcal vaccine 65+ (2 of 2 - PCV20 or PCV21) 06/16/2020 06/17/2019 Well Visit 65+ 11/09/2023 Influenza Vaccine (#1) 2024 12/29/2019, 2018 Breast Cancer Screening-Mammogram 11/07/2025 08/04/2 025 DTaP/Tdap/Td Vaccine (3 - Td or [...] images may or may not represent the [place] source data set and thus may contain changes which may lower the sensitivity of the second opinion interpretation. Dictated by: Mckenzie Yates MD The radiology attending physician has personally reviewed this study, and had reviewed and/or edited this written report and agrees with it. Electronically signed by: MD Isaak Hernandez 12/09/2024 10:51 AM CDT EXAMINATION: REVIEW AND INTERPRETATION OF OUTSIDE IMAGING FACILITY PERFORMING OUTSIDE IMAGING: [facility] EXAM(S) REVIEWED: 1. RIGHT UNILATERAL DIAGNOSTIC MAMMOGRAM [...] concern, there is no suspicious sonographic abnormality. Maisha WORTHINGTON IMG MAMMO PROCEDURES Final Resu lt * Screening Mammogram 2D Bilateral (11/07/2024 11:19 AM CDT) Anatomical Region Laterality Modality Breast Bilateral Mammography Historical Provider IMG MAMMO PROCEDURES Miriam l Result * Breast Imaging US Outside Reference (11/07/2024 12:05 AM CDT) Impressions RAD_MAMMO[facility] - 12/07/2024 11:17 AM CDT These images are for Reference purposes only and have not been reviewed by [facility] Radiology. There will be no report generated by a [facility] Radiologist. Narrative [facility]_MAMMO[facility] - 12/07/2024 11:17 AM CDT EXAMINATION: Images For Reference Purposes Only us Provider Transcribed Order IMG MAMMO PROCEDURES Final Result [facility] * Breast Imaging Diagnostic Outside Reference (11/07/2024 12:00 AM CDT) Impressions [facility] - 12/07/2024 11:17 AM CDT These images are for Reference purposes only and have not been reviewed by [facility] Radiology. There will be no report generated by a [facility] Radiologist. Narrative [facility] - 12/07/2024 11:17 AM CDT EXAMINATION: Images For Reference Purposes Only us Provider Transcribed Order IMG MAMMO PROCEDURES Final Result [facility]_M[facility] from Last 3 Months Insurance [address] [place] [id number] [facility] MEDIC[facility]IC[facility] Care Teams Coal Mine Inspector Relationship Specialty Start Date End Date Philip Sanchez MD [address] [place] [address] [place] [address] PCP - General Family Medicine 03/09/24
--- OUTSIDE RECORDS SUMMARY | 2024-12-21 02:41 | XMS_ITS | Encounter Summary ---
Author Organization [facility] Address [address] [facility] [address] [place] [address] Phone Care Team Providers Care Pinsetter Mechanic Automatic Name Role Phone Philip Sanchez MD Primary Care Provider [phone] Reason for Visit * Reason Onset Date Comments Letters 11/21/2024 Encounter Details Date Type Department Care Team (Late st Contact Info) Description 11/21/2024 Telephone [facility] Medicine Surgery [address] [facility] [address] [place] [address] Maisha Velasquez PA [address] [facility] [phone] [place], [place] [phone] Letters Social History Tobacco Use Types Packs/Day Years Used Date Smoking Tobacco: Never Passive Smoke Exposure: Never Smokeless Tobacco: Never Comments Unknown Sex and Gender Information Value Date Recorded Sex Assigned at Not on file Legal Sex Female 12:59 AM PRODUCTION FOREMAN Gender Identity Not on file Sexual Orientation [...] on filedocumented in this encounter Care Teams Pinsetter Mechanic Automatic Relationship Specialty Start Date End Date Philip Sanchez MD [address] [place] [address] [address] PCP - General Family Medicine 03/09/24 documented as of this encounter
[2024-12-21] MEDS: LACTATED RINGERS 1,000 ML 30 ML IV CONT ×2 (08:05→10:51)
[2024-12-21] MEDS: KETOROLAC 15 MG/ML VIAL (*BKC) IV PUSH (08:10)
[2024-12-21] MEDS: ACETAMINOPHEN 500 MG TABLET 1000 MG PO (08:10)
[2024-12-21] MEDS: INDOCYANINE GREEN 25 MG VIAL WITH DILUENT 3.75 MG IV PUSH (08:24)
[2024-12-21 08:27] LABS: Alanine Aminotransferase 31 U/L (6-35); Albumin Level 4.3 g/dL (3.5-5.1); Alkaline Phosphatase 76 U/L (38-126); Aspartate Amino Transferase 38 U/L (14-36); Bilirubin,Total 0.6 mg/dL (0.2-1.3); Lipase 150 U/L (23-300); Total Protein 6.9 g/dL (6.3-8.2)
--- NOTE | 2024-12-21 08:46 | PM.IMHP ---
H&P: HPI History of Present Illness Date/Time: 12/21/24 08:46 Chief Complaint: Symptomatic cholelithiasis Narrative: This is a 64-year-old woman who presents for robotic assisted laparoscopic cholecystectomy. She reports no changes since last seen in the office. Review of Systems Review of Systems: All systems reviewed & are unremarkable except as noted in HPI and below Constitutional: Constitutional: Denies chills, Denies fever(s), Denies headache(s) and Denies weight loss Eyes: Eyes: Denies change in vision ENT: Denies dizziness, Denies headache(s), Denies neck mass and Denies throat swelling Cardiovascular: Cardiovascular: Denies chest pain, Denies lightheadedness and Denies dyspnea Respiratory: Respiratory: Denies cough, Denies dyspnea and Denies wheezing Gastrointestinal: Gastrointestinal: Denies abdominal pain, Denies change in bowel habits, Denies nausea and Denies vomiting Genitourinary: Genitourinary: Denies hematuria and Denies dysuria Musculoskeletal: Musculoskeletal: Reports as per HPI Integumentary/Breasts: Skin/Breast: Reports as per HPI Neurologic: Denies dizziness and Denies headache(s) Allergic/Immunologic: Allergic/Immunologic: Denies throat swelling and Denies wheezing PMFSH Past Medical History Medical History (Updated 12/08/24 @ 16:57 by Philip Sanchez MD) Hypertension JUAN (obstructive sleep apnea) Insomnia Obesity (BMI 30.0-34.9) Surgical History Surgical History (Updated 11/18/24 @ 08:28 by Danielle Keys CMA) Hx of breast biopsy 2009 Hx of removal of ovary 2009 Family History Family History Mother Diabetes mellitus Family history of malignant neoplasm of breast in first degree relative Grandparent Diabetes mellitus Family history of malignant neoplasm of breast Father Hypertension Family history of cardiovascular disease Social History Social History Smoking packs per day: 1 Smoking cigarettes per day: 20.0 Years smoked: 10 Smoking pack-years: 10.00 Smoking status: Former smoker Tobacco type: cigarettes Smoking end date: 04/06/81 Alcohol intake: current Drinks per week: 2 Substance use: never Substance use type: does not use Lack of Transportation: No Lack of Food: Never True Current Housing: I Have Housing Concerned About Future Housing: No Difficulty Paying Gas/Electric Bills: No Difficulty Paying for Meds: No Currently Unemployed: No Education: High School Diploma/GED Difficulty w/ Childcare or Family Care: No Living arrangements: with family Additional living arrangements comments: Family Spiritual care concerns: No Meds Home Medications and Allergies Home Medications ?Medication ?Instructions ?Recorded ?Confirmed ?Type ergocalciferol (vitamin D2) 1,250 See Rx Instructions .Route 08/18/23 12/15/24 Rx mcg (50,000 unit) capsule .COMPLEX #13 caps bupropion HCl 150 mg 24 hr tablet, See Rx Instructions .Route 08/22/24 12/21/24 Rx extended release .COMPLEX #270 tabs spironolactone 50 mg tablet See Rx Instructions .Route 08/22/24 12/15/24 Rx .COMPLEX #90 tabs CPAP #1 ea 08/25/24 12/15/24 Rx trazodone 50 mg tablet 50 mg PO QHS sleep #90 tabs 08/25/24 12/15/24 Rx meloxicam 15 mg tablet 15 mg PO .PRN 11/03/24 12/15/24 History Allergies Allergy/AdvReac Type Severity Reaction Status Date / Time latex Allergy Intermediate RASH Verified 12/21/24 08:42 Tetracyclines Allergy Unknown RASH Verified 12/21/24 08:42 Vital Signs Vital Signs - 24 hr 12/21/24 08:36 Temperature 97.5 F L Pulse Rate 70 Blood Pressure 145/82 H Pulse Oximetry 97 Exam Const: General: no acute distress and alert Orientation/consciousness: patient oriented x3 HENMT: Head: normocephalic and atraumatic Ears: hearing grossly normal bilaterally Face/Nose/Sinus: Normal nares present Mouth: Yes Normal oral and palatal mucosa present Eyes: Periorbital: periorbital findings normal Sclera: sclerae normal EOM: EOMs intact bilaterally Neck: Neck: normal visual inspection, no lymphadenopathy and trachea midline Chest: Chest palpation & inspection: normal inspection of the chest Resp: Effort & Inspection: normal respiratory effort Auscultation: clear to auscultation bilaterally Cardio: Jugular venous distension: no JVD Rate: regular rate Rhythm: regular rhythm Heart sounds: S1 normal heart sound present and S2 normal heart sound present Peripheral pulses: Peripheral pulses 2+ throughout GI: Inspection: normal to inspection GI Palp: Yes Soft to palpation, No Tenderness to palpation present (GI), No Guarding due to palpation present (GI) and No Rebound tenderness present Percussion: Yes normal to percussion Auscultation: normal bowel sounds : General: Yes no CVA tenderness Back/Spine/Pelvis: Back: no CVA tenderness Neuro: General: patient oriented x3, no focal motor deficits and CN's II-XI intact bilaterally Cognition (Neuro): normal cognition Speech: normal speech Motor exam (neuro): 5/5 motor strength present throughout Extrem: General: capillary refill normal and no clubbing, cyanosis or edema H&P: Results Labs Labs: Liver Function 12/21/24 Range/Units 08:01 Total Bilirubin 0.6 (0.2-1.3) mg/dL Direct Bilirubin 0.0 (0-0.3) mg/dL AST 38 H (14-36) U/L ALT 31 (6-35) U/L Alkaline Phosphatase 76 (38-126) U/L Albumin 4.3 (3.5-5.1) g/dL Assessment and Plan Assessment and plan (1) Symptomatic cholelithiasis: Code(s): K80.20 - Calculus of gallbladder without cholecystitis without obstruction Status: Acute Assessment and Plan: I have recommended laparoscopic cholecystectomy, da Lusi Angel assisted. I have discussed the procedure, risks, benefits, and alternatives with the patient. All questions answered. No changes since last seen in office.
--- NOTE | 2024-12-21 08:47 | WPDHPUPDATE1 ---
History and Physical Update Update Date/Time: 12/21/24 08:47 History and Physical has been reviewed, including an updated exam of the patient. There are NO changes in the patient's condition. Risks, benefits, and alternatives have been discussed and questions answered. Patient agrees to proceed with procedure.
--- NOTE | 2024-12-21 08:52 | WPDANESEPPF ---
Anes - Initial Pre Proc Eval Procedure: Operation Date: 12/21/24 09:30 Proposed Procedures p Robotic Assisted Laparoscopic Cholecystectomy - Elia Heck DO Date/Time: 12/21/24 08:52 Surgeon: Elia Heck DO Pre Op Diagnosis: symptomatic cholelithiasis Patient Data Age: 64 Gender: F Height: 1.6 m Weight: 73.85 kg Last Vital Signs Temp 36.4 C L 12/21/24 08:36 Pulse 70 12/21/24 08:36 BP 145/82 H 12/21/24 08:36 Pulse Ox 97 12/21/24 08:36 Allergies Allergy/AdvReac Type Severity Reaction Status Date / Time latex Allergy Intermediate RASH Verified 12/21/24 08:42 Tetracyclines Allergy Unknown RASH Verified 12/21/24 08:42 Home Medications ?Medication ?Instructions ?Recorded ?Confirmed ?Type ergocalciferol (vitamin D2) 1,250 See Rx Instructions .Route 08/18/23 12/15/24 Rx mcg (50,000 unit) capsule .COMPLEX #13 caps bupropion HCl 150 mg 24 hr tablet, See Rx Instructions .Route 08/22/24 12/21/24 Rx extended release .COMPLEX #270 tabs spironolactone 50 mg tablet See Rx Instructions .Route 08/22/24 12/15/24 Rx .COMPLEX #90 tabs CPAP #1 ea 08/25/24 12/15/24 Rx trazodone 50 mg tablet 50 mg PO QHS sleep #90 tabs 08/25/24 12/15/24 Rx meloxicam 15 mg tablet 15 mg PO .PRN 11/03/24 12/21/24 History Laboratory Tests 12/21/24 08:01 Total Bilirubin 0.6 mg/dL (0.2-1.3) Direct Bilirubin 0.0 mg/dL (0-0.3) AST 38 H U/L (14-36) ALT 31 U/L (6-35) Alkaline Phosphatase 76 U/L (38-126) Total Protein 6.9 g/dL (6.3-8.2) Albumin 4.3 g/dL (3.5-5.1) Lipase 150 U/L (23-300) Patient hx anesthesia problems: none Family hx anesthesia problems: none Results Review: All pre-operative results and documents have been reviewed as part of the pre-operative evaluation. [facility] Past Medical History Medical History Hypertension JUAN (obstructive sleep apnea) Insomnia Obesity (BMI 30.0-34.9) Surgical History Surgical History Hx of breast biopsy 2009 Hx of removal of ovary 2009 Family History Family History Mother Diabetes mellitus Family history of malignant neoplasm of breast in first degree relative Grandparent Diabetes mellitus Family history of malignant neoplasm of breast Father Hypertension Family history of cardiovascular disease Social History Social History Smoking packs per day: 1 Smoking cigarettes per day: 20.0 Years smoked: 10 Smoking pack-years: 10.00 Smoking status: Former smoker Tobacco type: cigarettes Smoking end date: 04/06/81 Alcohol intake: current Drinks per week: 2 Substance use: never Substance use type: does not use Lack of Transportation: No Lack of Food: Never True Current Housing: I Have Housing Concerned About Future Housing: No Difficulty Paying Gas/Electric Bills: No Difficulty Paying for Meds: No Currently Unemployed: No Education: High School Diploma/GED Difficulty w/ Childcare or Family Care: No Living arrangements: with family Additional living arrangements comments: Family Spiritual care concerns: No Anes - Eval Final PreProcedure Day of Procedure 12/21/24 08:52 Patient weight: overweight Heart: regular rate and rhythm Lungs: clear to auscultation Airway: Mallampati scale class II Neurological: alert and oriented Last oral intake: >/= 8 hours ASA classification: III Emergent: no Anesthetic plan: proceed Anesthesia type and monitoring: general ETT and standard monitoring Results Review: All pre-operative results and documents have been reviewed as part of the pre-operative evaluation. Informed Consent: The patient's anesthetic plan and its attendant risks and benefits were discussed with the patient/family/POA. Questions were solicited and answers provided to the satisfaction of the patient/family/POA.
[2024-12-21] MEDS: ceFAZolin 2 GM in SODIUM CHLORIDE 0.9% IV 50 ML 100 ML IVPB (09:10)
[2024-12-21] MEDS: BUPIVACAINE/EPINEPHRINE 0.5% 30 ML VIAL INFILTRATE (09:36)
--- NOTE | 2024-12-21 09:58 | S_PTH ---
PATIENT: Donna Pitt LOC: [facility] U#:[id number] AGE/SX: 64/F ROOM: RE12/21/[address]: Elia Heck DO : 1960 BED: DIS: 12/21/2024 SPEC #: [id number] RECD: 12/21/24 13:16 STATUS: HALEIGH REDanielle #: [id number] MARK: 12/21/24 09:[address]: Elia Heck DEPT: [facility] Surgical RECD BY: Mar Beavers ENTERED: 12/21/24 13:17 SP TYPE: Surgical OTHR DR: Philip Sanchez MD Tissues: A - Gallbladder Procedures: Hematoxylin and Eosin Stain Gross and Microscopic Level 3
--- NOTE | 2024-12-21 10:14 | P.OP_ITS ---
Procedure Note - Detailed Date of Procedure 12/21/24 Pre-op Diagnosis symptomatic cholelithiasis Post-op Diagnosis Same Procedure Performed 1. Laparoscopic cholecystectomy with cholangiography, da Luis Angel assisted 2. Interpretation of cholangiography Surgeon Elia Heck, Anesthesia General and Local (0.5% bupivacaine) Indications This is a 64-year-old woman who presented with intermittent right upper quadrant abdominal pains over the past 2 years. Symptoms have become worse recently and she was sent for an ultrasound. This showed evidence of cholelithiasis. Discussions were made with the patient about treatment options and decision was made to proceed with robotic assisted laparoscopic cholecystectomy with cholangiography. Findings Robotic assisted laparoscopic cholecystectomy with cholangiography was performed. The gallbladder was somewhat dilated and contained multiple medium- sized gallstones. The cystic duct appeared normal in size. Indocyanine green was utilized with near infrared fluorescence imaging to identify the critical biliary anatomy. The cystic duct was easily visualized with indocyanine green and further medial and posterior to this I was able to also identify the common bile duct. The cystic duct was safely dissected free to obtain the critical view of safety. The gallbladder was removed and sent to the lab for pathology. No other intra-abdominal abnormalities were noted. Description of Procedure Procedure as well as risks, benefits, and alternatives were discussed with the patient. Written consent was obtained and placed in chart prior to procedure. 1.5 mL of indocyanine green was given intravenously in preop. Patient was brought back to surgical suite. She was placed supine on operating table. Time-out was done to confirm patient and procedure. She was then intubated by the anesthesia department. Her abdomen was then prepped and draped in sterile fashion using chlorhexidine prep. 0.5% bupivacaine was infiltrated locally at the site of each port placement. An 8 mm incision was made in the left upper quadrant and a 5 mm Optiview trocar was then advanced through the abdominal layers under direct visualization. Once inside the abdominal cavity, carbon dioxide insufflation was used to create a pneumoperitoneum. The camera was inserted and the abdomen was inspected. No mediated abnormalities were noted. The patient was placed in 12? reverse Trendelenburg position and rotated 6? to the left. Two 8 mm incisions were made in the right lateral abdomen and 2 8 mm trocars were inserted under direct visualization. An 8 mm incision was made in the supraumbilical region and an 8 mm trocar was inserted under direct visualization. The 5 mm Optiview trocar was then removed and another 8 mm trocar was inserted in its place. The robotic arms were then brought up to the patient's bedside and secured to each port. The camera and instruments were inserted. I then moved over to the robotic consult to take control of the camera and instruments. The gallbladder was grasped at the fundus and retracted cephalad. The infundibulum of the gallbladder was then grasped and retracted laterally. Hook electrocautery was then used to carefully dissect around the neck of the gallbladder. The cystic duct was identified and a window was created around it using hook electrocautery. The cystic artery was also identified and a window was created behind it using hook electrocautery. Critical view of safety was identified visualizing the cystic duct running directly into the neck of the gallbladder and the cystic artery running directly into the wall the gallbladder. The camera view was switched to firefly mode and the indocyanine green within the gallbladder and cystic duct was clearly visualized. No other structures were noted running into this region and there did not appear to be any obstruction of the cystic duct impeding flow of bile into the gallbladder. The camera mode was switched back to regular mode. Hemo lock clips were placed on both the cystic duct and cystic artery. Two clips were placed proximally and 1 distally. Hook electrocautery was then used to transect in between the clips. Once safely away from the ryann hepatus, hook electrocautery was used to dissect the gallbladder off of the liver bed. Once the gallbladder was completely dissected free it was then placed in an Endo- Catch bag and removed through the left upper quadrant port site. The liver bed was carefully inspected. Hemostasis appeared adequate under clips appeared secure. No other intra-abdominal abnormalities were noted. A Kiko cone was then used to approximate the fascia of the left upper quadrant port using an 0 Vicryl suture. The remaining instruments and camera were removed and the robotic arms were disengaged from the ports. Pneumoperitoneum was released and the ports were removed. The skin of each of the incisions was then approximated using 4-0 Monocryl subcuticular suture. Exofin glue was then applied on top. Patient was then awakened from anesthesia, extubated, and transferred to recovery. Estimated Blood Loss 5 Pathology Yes (Gallbladder) Complications No immediate complications Condition Stable Disposition Same day [facility] Billing Surgery - Charge Forward: Surgery Billing
[2024-12-21] MEDS: oxyCODONE HCL (*CRX) 5 MG TAB IR PO (11:27)
[2024-12-21] MEDS: fentaNYL CITRATE INJ (*CRX) 100 MCG/2 ML VIAL 25 MCG IV PUSH ×2 (11:50→12:00)
== END 2024-12-21 12:33 | disposition home or self-care (01) ==
PROVIDERS: PCP Family Medicine; Visit Provider Surgery
PROC: 0FT44ZZ Resection of Gallbladder, Percutaneous Endoscopic Approach (ICD-10-PCS; CPT 47562; principal; 2024-12-21 09:30)
DX: K80.10 Calculus of gallbladder with chronic cholecystitis without obstruction (principal); Z87.891 Personal history of nicotine dependence
CPT/HCPCS: 47563; 74300; S2900; 36415; 80076; 83690; 88304; J0690; A9270; J1100; J1885; J2003; J2250; J2405; J2704; J3010; J7120

== ENCOUNTER 2025-01-26 07:42 | Outpatient (CLI) | payer MEDICARE, SELFPAY ==
--- OUTSIDE RECORDS SUMMARY | 2017-03-03 01:00 | XMS_ITS | Encounter Summary ---
Author Organization [facility] Healthcare Address [address] [place] [address] Care Team Providers Care Neurology Teacher Name Role Phone Unavailable Primary Care Provider Unavailabl e Reason for Referral * Diagnostic Imaging (Routine) - Pending Review Specialty Diagnoses / Procedures Referred By Contac t Referred To Contact Procedures Breast Imaging Screening Outside Reference Transcribed Order, Provider Referral ID Status Reason Start Date Expiration Date V isits Requested Visits Authorized [id number] Pending Review 12/08/2024 01/07/2026 1 1 Reason for Visit * Diagnostic Imaging (Routine) - Pending Review Specialty Diagnoses / Procedures Referred By Contac t Referred To Contact Procedures Breast Imaging Screening Outside Reference Transcribed Order, Provider Referral ID Status Reason Start Date Expiration Date V isits Requested Visits Authorized [id number] Pending Review 12/08/2024 01/07/2026 1 1 Encounter Details Date Type Department Care Team (Late st Contact Info) Description 03/03/2017 Hospital Encounter [facility] [address] [place] [phone] Social History Tobacco Use Types Packs/Day Years Used Date Smoking Tobacco: Never Passive Smoke Exposure: Never Smokeless Tobacco: Never Comments Unknown Sex and Gender Information Value Date Recorded Sex Assigned at Not on file Legal Sex Female 12:59 AM INSOLE LIP TURNER Gender Identity Not on file Sexual Orientation Not on file documented as of this encounter Plan of Treatment Not on file documented as of this encounter Procedures Procedure Name Priority Date/Time Associated Diagnosis Comments BREAST IMAGING MG SCREENING OUTSIDE REFERENCE Routine 03/03/2017 12:00 AM INSOLE LIP TURNER documented in this encounter Results * Breast Imaging Screening Outside Reference (03/03/2017 12:00 AM INSOLE LIP TURNER) Impressions [facility] - 12/08/2024 5:17 PM CDT These images are for Reference purposes only and have not been reviewed by [facility] Radiology. There will be no report generated by a [facility] Radiologist. Narrative [facility] - 12/08/2024 5:17 PM CDT EXAMINATION: Images For Reference Purposes Only us Provider Transcribed Order IMG MAMMO PROCEDURES Final Result [facility] documented in this encounter Visit Diagnoses Not on filedocumented in this encounter
--- OUTSIDE RECORDS SUMMARY | 2018-07-01 | XMS_ITS | Encounter Summary ---
Author Organization [facility] Healthcare Address [address] [place] [address] Care Team Providers Care Metal Baler Name Role Phone Unavailable Primary Care Provider Unavailabl e Reason for Referral * Diagnostic Imaging (Routine) - Pending Review Specialty Diagnoses / Procedures Referred By Contac t Referred To Contact Procedures Breast Imaging Screening Outside Reference Transcribed Order, Provider Referral ID Status Reason Start Date Expiration Date V isits Requested Visits Authorized [id number] Pending Review 12/08/2024 01/07/2026 1 1 Reason for Visit * Diagnostic Imaging (Routine) - Pending Review Specialty Diagnoses / Procedures Referred By Contac t Referred To Contact Procedures Breast Imaging Screening Outside Reference Transcribed Order, Provider Referral ID Status Reason Start Date Expiration Date V isits Requested Visits Authorized [id number] Pending Review 12/08/2024 01/07/2026 1 1 Encounter Details Date Type Department Care Team (Late st Contact Info) Description 07/01/2018 Hospital Encounter [facility] [address] [place] [phone] Social History Tobacco Use Types Packs/Day Years Used Date Smoking Tobacco: Never Passive Smoke Exposure: Never Smokeless Tobacco: Never Comments Unknown Sex and Gender Information Value Date Recorded Sex Assigned at Not on file Legal Sex Female 12:59 AM RRT Gender Identity Not on file Sexual Orientation [...] only and have not been reviewed by [facility] Radiology. There will be no report generated by a [facility] Radiologist. Narrative [facility] - 12/08/2024 5:17 PM CDT EXAMINATION: Images For Reference Purposes Only us Provider Transcribed Order IMG MAMMO PROCEDURES Final Result [facility] documented in this encounter Visit Diagnoses Not on filedocumented in this encounter
--- OUTSIDE RECORDS SUMMARY | 2020-02-22 01:00 | XMS_ITS | Encounter Summary ---
Author Organization [facility] Healthcare Address [address] [place] [address] Care Team Providers Care Switch Technician Name Role Phone Unavailable Primary Care Provider Unavailabl e Reason for Referral * Diagnostic Imaging (Routine) - Pending Review Specialty Diagnoses / Procedures Referred By Contac t Referred To Contact Procedures Breast Imaging Screening Outside Reference Transcribed Order, Provider Referral ID Status Reason Start Date Expiration Date V isits Requested Visits Authorized [id number] Pending Review 12/08/2024 01/07/2026 1 1 Reason for Visit * Diagnostic Imaging (Routine) - Pending Review Specialty Diagnoses / Procedures Referred By Contac t Referred To Contact Procedures Breast Imaging Screening Outside Reference Transcribed Order, Provider Referral ID Status Reason Start Date Expiration Date V isits Requested Visits Authorized [id number] Pending Review 12/08/2024 01/07/2026 1 1 Encounter Details Date Type Department Care Team (Late st Contact Info) Description 02/22/2020 Hospital Encounter [facility] [address] [place] [id number] Social History Tobacco Use Types Packs/Day Years Used Date Smoking Tobacco: Never Passive Smoke Exposure: Never Smokeless Tobacco: Never Comments Unknown Sex and Gender Information Value Date Recorded Sex Assigned at Not on file 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 Gender Identity Not on file Sexual Orientation Not on file documented as of this encounter Plan of Treatment Not on file documented as of this encounter Procedures Procedure Name Priority Date/Time Associated Diagnosis Comments BREAST IMAGING MG SCREENING OUTSIDE REFERENCE Routine 02/22/2020 12:00 AM SUPERINTENDENT OPERATING documented in this encounter Results * Breast Imaging Screening Outside Reference (02/22/2020 12:00 AM SUPERINTENDENT OPERATING) Impressions [facility] - 12/08/2024 5:17 PM CDT These images are for Reference purposes only and have not been reviewed by [facility]. There will be no report generated by a [facility] Radiologist. Narrative [facility] - 12/08/2024 5:17 PM CDT EXAMINATION: Images For Reference Purposes Only us Provider Transcribed Order IMG MAMMO PROCEDURES Final Result [facility] documented in this encounter Visit Diagnoses Not on filedocumented in this encounter
--- NOTE | ~2025-01-26 | MM_ITS ---
EXAMINATION: MM screening tala BI w tram HISTORY: Screening TECHNIQUE: Craniocaudal and mediolateral oblique 3-D tomosynthesis images were obtained and synthetic 2-D images were generated. CAD analysis was submitted and interpreted. COMPARISON: Comparison to multiple prior studies sequentially, with oldest reviewed study dated , 03/03/2017 BREAST PARENCHYMAL COMPOSITION: The breasts are almost entirely fatty. FINDINGS: There is no evidence of suspicious mass, calcification, or architectural distortion to suggest malignancy in either breast. IMPRESSION: 1. No mammographic evidence of malignancy. 2. Recommend routine screening mammography in one year. BI-RADS Category 1: Negative Reviewed, dictated and finalized at location B.
--- OUTSIDE RECORDS SUMMARY | 2025-01-26 07:54 | XMS_ITS | Clinical Summary ---
Author Organization [facility] Address [address] [place] [id number] Care Team Providers Care Spare Parts Clerk Name Role Phone Philpi Sanchez MD Primary Care Provider [phone] Allergies Active Allergy Reactions Criticality Noted Date Comments Latex Rash Medium 12/15/2024 Tetracyclines Rash Medium 12/15/2024 Medications ergocalciferol (VITAMIN D) 50,000 unit capsule Take 1 capsule (50,000 Units total) by mouth once a week 05/11/2024 Active buPROPion SR (WELLBUTRIN SR) 150 mg 12 hr tablet Take 1 tablet (150 mg total) by mouth 2 (two) times a day Active wuvvkgre-vjjg-v in-folic acid 18-0.4 mg tablet Take by mouth Active traZODone (DESYREL) 50 mg tablet Take 1 tablet (50 mg total) by mouth 08/25/2024 Active meloxicam (MOBIC) 15 mg tablet Take 1 tablet (15 mg total) by mouth daily 10/15/2024 Active spironolactone (ALDACTONE) 50 mg tablet by other route 08/22/2024 Active Active Problems No known active problems Encounters Date Type Department Care Team Description 12/15/2024 8:30 AM CDT Office Visit [facility] Medicine Surgery [address] [place] [address] Maisha Velasquez PA Mass of lower outer quadrant of right breast (Primary Dx); Family history of breast cancer 12/08/2024 5:35 PM CDT - 12/08/2024 11:59 PM CDT Hospital Encounter [facility] [address] [place] [id number] Discharge Disposition: Discharge to home or self care 12/07/2024 Orders Only [facility] ([facility]) [address] [place] [phone] ProviderKenji MD 11/22/2024 Orders Only [facility] Surgery [address] [phone] Maisha Velasquez PA 11/21/2024 Telephone [facility] [address] [phone] Maisha Velasquez PA Patient issue/concern 11/21/2024 Telephone [facility] Medicine Surgery [address] [place] [phone] Maisha Velasquez PA Letters 11/21/2024 [facility] [address] [place] [phone] Janet Power NP Breast lump on right side at 7 o'clock position (Primary Dx) 2024 Telephone [place] [id number] [place] [address] Cehyanne Terrazas RN 2nd Opinion; Appointment Request 11/07/2024 12:05 AM CDT - 11/07/2024 11:59 PM CDT Hospital Encounter [facility] ([facility]) [address] [place] [address] Discharge Disposition: Discharge to home or self care 11/07/2024 - 11/07/2024 11:59 PM CDT Hospital Encounter [facility] (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 RIGHT UNILATERAL DIAGNOSTIC MAMMOGRAM [...] Anatomical Region Laterality Modality Breast Bilateral Mammography us Kenji Provider IMG MAMMO PROCEDURES Miriam eddy Result * Breast Imaging US Outside Reference (11/07/2024 12:05 AM CDT) Impressions [facility] - 12/07/2024 11:17 AM CDT These images are for Reference purposes only and have not been reviewed by [facility] Radiology. There will be no report generated by a [facility] Radiologist. Narrative [facility] - 12/07/2024 11:17 AM CDT EXAMINATION: Images For Reference Purposes Only us Provider Transcribed Order IMG MAMMO PROCEDURES Final Result Performing Organization Address [facility] Co de Phone Number [facility] * Breast Imaging Diagnostic Outside Reference (11/07/2024 12:00 AM CDT) Impressions [facility] - 12/07/2024 11:17 AM CDT These images are for Reference purposes only and have not been reviewed by [facility] Radiology. There will be no report generated by a [facility] Radiologist. Narrative [facility] - 12/07/2024 11:17 AM CDT EXAMINATION: Images For Reference Purposes Only us Provider Transcribed Order IMG MAMMO PROCEDURES Final Result [facility] from Last 3 Months Insurance [employer] MEDICARE GOLD A[employer] MEDICARE GOLD Care Teams Spare Parts Clerk Relationship Specialty Start Date End Date Philip Sanchez MD [address] [place] [address] [place] [address] PCP - General Family Medicine 03/09/24
--- OUTSIDE RECORDS SUMMARY | 2025-01-26 07:54 | XMS_ITS | Clinical Summary ---
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
== END 2025-01-26 07:43 | disposition home or self-care (01) ==
LOC: ANHFOHIMG 07:51
PROVIDERS: PCP Family Medicine; Visit Provider Family Medicine
DX: Z12.31 Encounter for screening mammogram for malignant neoplasm of breast (principal)
CPT/HCPCS: 77063; 77067

== ENCOUNTER 2025-02-25 23:03 | Emergency (ER) | payer MEDICARE, SELFPAY ==
--- OUTSIDE RECORDS SUMMARY | 2017-03-03 | XMS_ITS | Encounter Summary ---
Author Organization [facility] Healthcare Address [address] [place] [address] Care Team Providers Care Lead Mechanic Name Role Phone Unavailable Primary Care Provider Unavailabl e Reason for Referral * Diagnostic Imaging (Routine) - Pending Review Specialty Diagnoses / Procedures Referred By Contac t Referred To Contact Procedures Breast Imaging Screening Outside Reference Transcribed Order, Provider Referral ID Status Reason Start Date Expiration Date V isits Requested Visits Authorized [id number] Pending Review 12/08/2024 01/07/2026 1 1 Reason for Visit * Diagnostic Imaging (Routine) - Pending Review Specialty Diagnoses / Procedures Referred By Contac t Referred To Contact Procedures Breast Imaging Screening Outside Reference Transcribed Order, Provider Referral ID Status Reason Start Date Expiration Date V isits Requested Visits Authorized [id number] Pending Review 12/08/2024 01/07/2026 1 1 Encounter Details Date Type Department Care Team (Late st Contact Info) Description 03/03/2017 Hospital Encounter [facility] [address] [place] [phone] Social History Tobacco Use Types Packs/Day Years Used Date Smoking Tobacco: Never Passive Smoke Exposure: Never Smokeless Tobacco: Never Comments Unknown Sex and Gender Information Value Date Recorded Sex Assigned at Not on file Legal Sex Female 12:59 AM EXAMINATION GRADER Gender Identity Not on file Sexual Orientation Not on file documented as of this encounter Plan of Treatment Not on file documented as of this encounter Procedures Procedure Name Priority Date/Time Associated Diagnosis Comments BREAST IMAGING MG SCREENING OUTSIDE REFERENCE Routine 03/03/2017 12:00 AM EXAMINATION GRADER documented in this encounter Results * Breast Imaging Screening Outside Reference (03/03/2017 12:00 AM EXAMINATION GRADER) Impressions [facility] - 12/08/2024 5:17 PM CDT These images are for Reference purposes only and have not been reviewed by [facility]iology. There will be no report generated by a [facility] Radiologist. Narrative [facility] - 12/08/2024 5:17 PM CDT EXAMINATION: Images For Reference Purposes Only us Provider Transcribed Order IMG MAMMO PROCEDURES Final Result [facility] documented in this encounter Visit Diagnoses Not on filedocumented in this encounter
--- OUTSIDE RECORDS SUMMARY | 2017-03-03 | XMS_ITS | Encounter Summary ---
Author Organization [facility] Healthcare Address [address] [place] [address] Care Team Providers Care Station Attendant Name Role Phone Unavailable Primary Care Provider Unavailabl e Reason for Referral * Diagnostic Imaging (Routine) - Pending Review Specialty Diagnoses / Procedures Referred By Contac t Referred To Contact Procedures Breast Imaging Screening Outside Reference Transcribed Order, Provider Referral ID Status Reason Start Date Expiration Date V isits Requested Visits Authorized [id number] Pending Review 12/08/2024 01/07/2026 1 1 Reason for Visit * Diagnostic Imaging (Routine) - Pending Review Specialty Diagnoses / Procedures Referred By Contac t Referred To Contact Procedures Breast Imaging Screening Outside Reference Transcribed Order, Provider Referral ID Status Reason Start Date Expiration Date V isits Requested Visits Authorized [id number] Pending Review 12/08/2024 01/07/2026 1 1 Encounter Details Date Type Department Care Team (Late st Contact Info) Description 03/03/2017 Hospital Encounter [facility] [address] [place] [phone] Social History Tobacco Use Types Packs/Day Years Used Date Smoking Tobacco: Never Passive Smoke Exposure: Never Smokeless Tobacco: Never Comments Unknown Sex and Gender Information Value Date Recorded Sex Assigned at Not on file Legal Sex Female 12:59 AM IMPORT AND EXPORT CLERK Gender Identity Not on file Sexual Orientation Not on file documented as of this encounter Plan of Treatment Not on file documented as of this encounter Procedures Procedure Name Priority Date/Time Associated Diagnosis Comments BREAST IMAGING MG SCREENING OUTSIDE REFERENCE Routine 03/03/2017 12:00 AM IMPORT AND EXPORT CLERK documented in this encounter Results * Breast Imaging Screening Outside Reference (03/03/2017 12:00 AM IMPORT AND EXPORT CLERK) Impressions [facility] - 12/08/2024 5:17 PM CDT These images are for Reference purposes only and have not been reviewed by [facility] Radiology. There will be no report generated by a [facility] Radiologist. Narrative [facility] - 12/08/2024 5:17 PM CDT EXAMINATION: Images For Reference Purposes Only us Provider Transcribed Order IMG MAMMO PROCEDURES Final Result [facility] documented in this encounter Visit Diagnoses Not on filedocumented in this encounter
--- OUTSIDE RECORDS SUMMARY | 2018-06-30 23:00 | XMS_ITS | Encounter Summary ---
Author Organization [facility] Healthcare Address [address] [place] [address] Care Team Providers Care Desktop Architect Name Role Phone Unavailable Primary Care Provider Unavailabl e Reason for Referral * Diagnostic Imaging (Routine) - Pending Review Specialty Diagnoses / Procedures Referred By Contac t Referred To Contact Procedures Breast Imaging Screening Outside Reference Transcribed Order, Provider Referral ID Status Reason Start Date Expiration Date V isits Requested Visits Authorized [id number] Pending Review 12/08/2024 01/07/2026 1 1 Reason for Visit * Diagnostic Imaging (Routine) - Pending Review Specialty Diagnoses / Procedures Referred By Contac t Referred To Contact Procedures Breast Imaging Screening Outside Reference Transcribed Order, Provider Referral ID Status Reason Start Date Expiration Date V isits Requested Visits Authorized [id number] Pending Review 12/08/2024 01/07/2026 1 1 Encounter Details Date Type Department Care Team (Late st Contact Info) Description 07/01/2018 Hospital Encounter [facility] [address] [place] [phone] Social History Tobacco Use Types Packs/Day Years Used Date Smoking Tobacco: Never Passive Smoke Exposure: Never Smokeless Tobacco: Never Comments Unknown Sex and Gender Information Value Date Recorded Sex Assigned at Not on file Legal Sex Female 12:59 AM RACK MAKER Gender Identity Not on file Sexual Orientation Not on file documented as of this encounter Plan of Treatment Not on file documented as of this encounter Procedures Procedure Name Priority Date/Time Associated Diagnosis Comments BREAST IMAGING MG SCREENING OUTSIDE REFERENCE Routine 07/01/2018 12:00 AM CDT documented in this encounter Results * Breast Imaging Screening Outside Reference (07/01/2018 12:00 AM CDT) Impressions [facility] - 12/08/2024 5:17 PM CDT These images are for Reference purposes only and have not been reviewed by [facility] Radiology. There will be no report generated by a [facility] Radiologist. Narrative RAD[facility] - 12/08/2024 5:17 PM CDT EXAMINATION: Images For Reference Purposes Only us Provider Transcribed Order IMG MAMMO PROCEDURES Final Result [facility] documented in this encounter Visit Diagnoses Not on filedocumented in this encounter
--- OUTSIDE RECORDS SUMMARY | 2018-06-30 23:00 | XMS_ITS | Encounter Summary ---
Author Organization [facility] Healthcare Address [address] [place] [address] Care Team Providers Care Quality Assurance Coordinator Name Role Phone Unavailable Primary Care Provider Unavailabl e Reason for Referral * Diagnostic Imaging (Routine) - Pending Review Specialty Diagnoses / Procedures Referred By Contac t Referred To Contact Procedures Breast Imaging Screening Outside Reference Transcribed Order, Provider Referral ID Status Reason Start Date Expiration Date V isits Requested Visits Authorized [id number] Pending Review 12/08/2024 01/07/2026 1 1 Reason for Visit * Diagnostic Imaging (Routine) - Pending Review Specialty Diagnoses / Procedures Referred By Contac t Referred To Contact Procedures Breast Imaging Screening Outside Reference Transcribed Order, Provider Referral ID Status Reason Start Date Expiration Date V isits Requested Visits Authorized [id number] Pending Review 12/08/2024 01/07/2026 1 1 Encounter Details Date Type Department Care Team (Late st Contact Info) Description 07/01/2018 Hospital Encounter [facility] [address] [place] [phone] Social History Tobacco Use Types Packs/Day Years Used Date Smoking Tobacco: Never Passive Smoke Exposure: Never Smokeless Tobacco: Never Comments Unknown Sex and Gender Information Value Date Recorded Sex Assigned at Not on file Legal Sex Female 12:59 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 There will be no report generated by a [facility] Radiologist. Narrative [facility] - 12/08/2024 5:17 PM CDT EXAMINATION: Images For Reference Purposes Only us Provider Transcribed Order IMG MAMMO PROCEDURES Final Result [facility] documented in this encounter Visit Diagnoses Not on filedocumented in this encounter
--- OUTSIDE RECORDS SUMMARY | 2020-02-22 | XMS_ITS | Encounter Summary ---
Author Organization [facility] Healthcare Address [address] [place] [address] Care Team Providers Care Kettle Cleaner Name Role Phone Unavailable Primary Care Provider Unavailabl e Reason for Referral * Diagnostic Imaging (Routine) - Pending Review Specialty Diagnoses / Procedures Referred By Contac t Referred To Contact Procedures Breast Imaging Screening Outside Reference Transcribed Order, Provider Referral ID Status Reason Start Date Expiration Date V isits Requested Visits Authorized [id number] Pending Review 12/08/2024 01/07/2026 1 1 Reason for Visit * Diagnostic Imaging (Routine) - Pending Review Specialty Diagnoses / Procedures Referred By Contac t Referred To Contact Procedures Breast Imaging Screening Outside Reference Transcribed Order, Provider Referral ID Status Reason Start Date Expiration Date V isits Requested Visits Authorized [id number] Pending Review 12/08/2024 01/07/2026 1 1 Encounter Details Date Type Department Care Team (Late st Contact Info) Description 02/22/2020 Hospital Encounter [facility] [address] [place] [id number] Social History Tobacco Use Types Packs/Day Years Used Date Smoking Tobacco: Never Passive Smoke Exposure: Never Smokeless Tobacco: Never Comments Unknown Sex and Gender Information Value Date Recorded Sex Assigned at Not on file Legal Sex Female 12:59 AM CUSTOMER CARE VOICE CONSULTANT Gender Identity Not on file Sexual Orientation Not on file documented as of this encounter Plan of Treatment Not on file documented as of this encounter Procedures Procedure Name Priority Date/Time Associated Diagnosis Comments BREAST IMAGING MG SCREENING OUTSIDE REFERENCE Routine 02/22/2020 12:00 AM CUSTOMER CARE VOICE CONSULTANT documented in this encounter Results * Breast Imaging Screening Outside Reference (02/22/2020 12:00 AM CUSTOMER CARE VOICE CONSULTANT) Impressions [facility] - 12/08/2024 5:17 PM CDT These images are for Reference purposes only and have not been reviewed by [facility]. There will be no report generated by a [facility] Radiologist. Narrative [facility] - 12/08/2024 5:17 PM CDT EXAMINATION: Images For Reference Purposes Only us Provider Transcribed Order IMG MAMMO PROCEDURES Final Result [facility] documented in this encounter Visit Diagnoses Not on filedocumented in this encounter
--- OUTSIDE RECORDS SUMMARY | 2020-02-22 | XMS_ITS | Encounter Summary ---
Author Organization [facility] Healthcare Address [address] [place] [address] Care Team Providers Care Tetryl Dissolver Operator Name Role Phone Unavailable Primary Care Provider Unavailabl e Reason for Referral * Diagnostic Imaging (Routine) - Pending Review Specialty Diagnoses / Procedures Referred By Contac t Referred To Contact Procedures Breast Imaging Screening Outside Reference Transcribed Order, Provider Referral ID Status Reason Start Date Expiration Date V isits Requested Visits Authorized [id number] Pending Review 12/08/2024 01/07/2026 1 1 Reason for Visit * Diagnostic Imaging (Routine) - Pending Review Specialty Diagnoses / Procedures Referred By Contac t Referred To Contact Procedures Breast Imaging Screening Outside Reference Transcribed Order, Provider Referral ID Status Reason Start Date Expiration Date V isits Requested Visits Authorized [id number] Pending Review 12/08/2024 01/07/2026 1 1 Encounter Details Date Type Department Care Team (Late st Contact Info) Description 02/22/2020 Hospital Encounter [facility] [address] [place] [id number] Social History Tobacco Use Types Packs/Day Years Used Date Smoking Tobacco: Never Passive Smoke Exposure: Never Smokeless Tobacco: Never Comments Unknown Sex and Gender Information Value Date Recorded Sex Assigned at Not on file Legal 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
--- NOTE | ~2025-02-25 | XR_ITS ---
Examination: XR chest 1V portable Clinical History: ROSSI Comparison: None Technique: Portable AP Findings: Heart size normal. Minimally increased interstitial markings. No acute bony abnormality. IMPRESSION: 1. Trace interstitial pulmonary edema and/or pneumonitis. Reviewed, dictated and finalized at location R. NURSE
--- NOTE | ~2025-02-25 | CT_ITS ---
EXAMINATION: CTA brain carotid DATE: 02/26/2025 01:31 INDICATION: Dysphagia. TECHNIQUE: Computed tomographic angiography (CTA) of the head was performed without and with 100 mL Omnipaque-350 intravenous contrast. CTA of the neck was performed with intravenous contrast. Automated exposure control and iterative reconstruction technique were employed. The dose-length product was 1631.65 mGy- cm. Maximum intensity projection and volume rendered 3D-reconstructions were created by the technologist on a separate workstation. COMPARISON: None. FINDINGS: HEAD CTA: There are scattered areas of low attenuation in the cerebral white matter. There is no intracranial hemorrhage, acute infarction, or abnormal intracranial mass lesion. The ventricles are normal in size. There is mild mucosal thickening in the paranasal sinuses. The orbits are normal. The mastoid air cells are normal. The vertebral arteries are codominant. There is no significant stenosis of basilar artery or the posterior cerebral arteries. The posterior communicating arteries are normal. There is no significant stenosis of the intracranial internal carotid arteries or anterior or middle cerebral arteries. Anterior communicating artery is normal. There is no aneurysm. NECK CTA: There are no pathologically enlarged lymph nodes. There is no significant stenosis of the vertebral arteries. There is plaque in the proximal internal carotid arteries. There is 0% stenosis of the proximal right internal carotid artery relative to normal distal artery lumen diameter (NASCET c riteria). There is 0% stenosis of the proximal left internal carotid artery relative to normal distal artery lumen diameter. There is severe cervical spondylosis. IMPRESSION: 1. Mild nonspecific cerebral white matter disease, which likely represents chronic small vessel ischemic disease. 2. No aneurysm or significant intracranial arterial stenosis. 3. 0% stenosis of the proximal internal carotid arteries relative to normal distal artery lumen diameters (NASCET criteria). Reviewed, dictated and finalized at location E. STRIAL ENG IMPRESSION: 1. 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 2. No aneurysm or significant intracranial arterial stenosis. 3. 0% stenosis of the proximal internal carotid arteries relative to normal dis reena artery lumen diameters (NASCET criteria).
--- OUTSIDE RECORDS SUMMARY | 2025-02-25 23:05 | XMS_ITS | Data Portability ---
Author Organization [place] [facility], Main Office Address [address] [place] [address] Care Team Providers Care Restaurant Bartender Name Role Phone SELINA WONG Primary Care Provider SELINA WONG Referring Provider Assessment Encounter Date Assessment Date Assessment LastModified by Organization Details LastModified Time 06/01/2023 06/01/2023 The patient has moderately severe primaries to thrive this of the right knee joint with significant narrowing in the medial compartment she has some mild hypertrophic changes noted off the medial femoral condyle. We talked about treatment options today in detail she went to proceed with cortisone therefore under sterile conditions I injected patient's right knee joint in the office today with 4 cc of 0.5% Marcaine and 20 mg of Kenalog. The patient tolerated the procedure well. The she already has ibuprofen 800 mg she will take this t.i.d. with food she is going to work with her pulmonary nurse practitioner keep the muscles strong we talked about proper exercise which would be low impact things like elliptical machine and exercise bike. I will see her back in 6 weeks to see would impact treatment has had. She voiced understanding agrees above plan. We did talk about the possibility of future gel shots we will see how she does with the cortisone today. She will call for any further problems difficulties or questions. Not available 06/01/2023 10:39:01 07/31/2023 07/31/2023 The patient has moderately severe primary osteoarthritis right knee joint. We talked about continuing with ibuprofen as necessary she is backing off a little bit because her knee is feeling much better. We did discuss the possibility of gel shots down the road versus cortisone in the future if her knee pain flares up again. She has modified her exercise routine this seems to be helping as well. We talked about doing low-impact exercise strengthening the quad muscle etc.. She voiced understanding agrees above plan I will see her back as needed she will call for any further problems difficulties or questions. Not available 07/31/2023 10:58:54 10/06/2024 10/06/2024 The patient has moderately severe primary osteoarthritis of the right knee joint. She has significant narrowing of the medial compartment where most of the osteoarthritis is noted. We talked about treatment options today in detail we are going to start with a course of meloxicam 15 mg daily she wants to try another shot of cortisone, it has been more than a year since her last injection. At her request under sterile conditions I injected the patient's right knee joint in the office with 4 cc 0.5% bupivacaine and 20 mg of Kenalog. The patient tolerated the procedure well. I will see her back in 6 weeks if necessary otherwise as needed. If her symptoms do not improve significantly with cortisone we could consider gel shots. We will see how she does with medication activity modification and the injection. She voiced understanding agrees with the above plan she will call for any further problems difficulties or questions. Not available 10/06/2024 10:33:35 Plan of Treatment Reminders Order Date Submit Date Provider Last Modified By Organization Details Last Modified Time Details Appointments None recorded. Lab None recorded. Referral None recorded. Procedures injection/a spiration joint/bursa (PROC) 2024 025 In-Office Order, Internal Use Only DO Not Attach Compendium DO Not Attach Compendium, Do Not Delete/merge, [id number] 09:54:48 injection/a spiration joint/bursa (PROC) 2023 024 [email or web address] In-Office Order, Internal Use Only DO Not Attach Compendium DO Not Attach Compendium, Do Not Delete/merge, [id number] 10:28:18 Surgeries None recorded. Imaging XR, knee 2024 025 [facility] [place], [address], [place], [address], 5 10:59:03 XR, knee 2023 024 [email or web address] [facility] [place], [address] [facility] [address], [place], [address], 4 13:23:11 Medication Orders bupivacaine HCl 0.5 % (5 mg/mL) injection solution [address] [facility], [address] [place], [address], 5 10:47:24 Kenalog 10 mg/mL suspension for injection [address] [facility], [address] [place], [address], 5 10:47:24 meloxicam 15 mg tablet [address] [facility], [address] [place], [address], 5 10:47:24 Marcaine (PF) 0.5 % (5 mg/mL) injection solution [address] [facility], [address] [place], [address], 5 09:52:47 Kenalog 10 mg/mL suspension for injection [address] [facility], [address] [place], [address], 5 09:52:40 Patient TargetsNo targets recorded. Patient InstructionsNo instructions recorded. Reason for Referral None Reported. Results Created Date Observation Date Name Description Value Unit Range Abnormal Flag Note LastModifiedBy Organization Detail LastModifiedTime 06/01/19 24 XR, knee No observ ation record ed. [email or web address] [facility] [place] [address], [place], [address], 06/01/2023 13:23:09 10/07/19 25 XR, knee No observ ation record ed. [email or web address] [facility] [place] [address], [place], [address], 10/06/2024 10:34:33 Result Notes None recorded. Problems Name Problem SNOMED Code Status Onset Date Resolution Date Notes Provider Name and Address Organization Details Recorded Time Pain of right knee joint 6735803755936 00 Active 2023 Charo Michel TRANSPORTATION DESIGN ENGINEER null, [place] [facility] 10:05:48 Osteoarthri tis of right knee joint 7351180506605 00 Active 2023 ANDER Berger [address] [facility], [facility] [address], [place], [address] [facility] [employer] 4 10:39:19 Problem Notes None recorded. Medical Equipment None Reported. Allergies Allergen ID Allergen Name Allergen Category Reaction Reaction Severity Criticality Documentation Date Start Date Code Code System Note Provider Name and Address Organization Details Recorded Time 97799 latex environme nt,medica tion rash Not available Not available 06/01/2023 58573 91 RxNorm Charo Michel, TRANSPORTATION DESIGN ENGINEER null, [place] [facility] 10:02:29 74467 tetracycl ine medicatio n rash Not available Not available 06/01/2023 61020 RxNorm Charo Anand, TRANSPORTATION DESIGN ENGINEER null, [employer] [facility] 4 10:02:44 Medications Name Sig Start Date Stop Date Status Note LastModified by Organization Details LastModified Time azelastine 0.05 % eye drops INSTILL 1 DROP INTO EACH EYE EVERY DAY AT BEDTIME 10/06 completed Not Available Not Available Not Available trazodone 50 mg tablet TAKE 1 TABLET BY MOUTH EVERY DAY AT BEDTIME FOR SLEEP active Not Available Not Available No t Available meloxicam 15 mg tablet TAKE 1 TABLET BY MOUTH ONCE DAILY active Not Available Not Available No t Available bupivacaine HCl 0.5 % (5 mg/mL) injection solution Take 20 mg by injection route. 2024 active Not Available Not Available Not Avai lable prednisolon e acetate 1 % eye drops,suspe nsion INSTILL 1 DROP INTO EACH EYE 4 TIMES DAILY FOR 2 DAYS THEN 1 INTO EACH EYE THREE TIMES DAILY FOR 2 DAYS THEN 1 INTO EACH EYE TWICE DAILY FOR 2 DAYS THEN 1 INTO EACH EYE ONCE DAILY FOR 2 DAYS 06/01 completed Not Available Not Available Not Available Kenalog 10 mg/mL suspension for injection Take 20 mg by injection route. 2024 active [facility]: 0003- 0494- 20 Not Available Not Available Not Available ergocalcife rol (vitamin D2) 1,250 mcg (50,000 unit) capsule TAKE 1 CAPSULE BY MOUTH ONCE A WEEK active Not Available Not Available No t Available spironolact one 50 mg tablet TAKE 1 TABLET BY MOUTH ONCE DAILY active Not Available Not Available No t Available bupropion HCl XL 150 mg 24 hr tablet, extended release TAKE 3 TABLETS BY MOUTH IN THE MORNING active Not Available Not Available No t Available Marcaine (PF) 0.5 % (5 mg/mL) injection solution Take 20 mg by injection route. 10/06 completed Not Available Not Available Not Available eszopiclone 3 mg tablet TAKE 1 TABLET BY MOUTH EVERY DAY AT BEDTIME 10/06 completed Not Available Not Available Not Available Vitals Date Recorded Body height Body mass index (BMI) Body weight Provider Name and Address Organization Details Last Updated DateTime 06/01/2023 160.02 cm 30.1 kg/m2 49316.7 g Charo Michel CNA [employer] 06/01/2023 10:02:03 Date Recorded Body height Body mass index (BMI) Body weight Provider Name and Address Organization Details Last Updated DateTime 07/31/2023 162.56 cm 25.7 kg/m2 04872.86 g Charo Michel CNA [employer] 07/31/2023 10:25:58 Date Recorded Body height Body mass index (BMI) Body weight Provider Name and Address Organization Details Last Updated DateTime 10/06/2024 160.02 cm 28.3 kg/m2 73130.78 g Charo Michel CNA [place] [facility] [place] [facility] 10/06/2024 09:52:04 Social History Question Answer Notes LastModified by Organizat ion Details LastModified Time Tobacco Smoking Status Former Smoker Charo Michel CNA null, [place] [facility] [place] [employer] [facility] 06/01/2023 10:04:24 When Did You Quit Smoking? 14+yearssin celastciace ette 30 Years Ago Information not available 06/01/2023 What Was The Date Of Your Most Recent Tobacco Screening? 10/06/2024 Information not available 10/06/2024 Sex: Unknown Functional Status Question Answer Note LastModified by Organizat ion Details LastModified Time What is your level of alcohol consumption? Occasional Information not available 06/01/2023 Mental Status None recorded. Family History Relationship Description Onset Age of this Age Resolved Age Notes LastModified by Organization Details LastModified Time Father Heart disease Not available 2023 10:03:20 Father Hypertensive disorder Not available 2023 10:03:43 Paternal Grandmother Family history of malignant neoplasm Not available 2023 10:03:32 Mother Diabetes mellitus Not available 2023 10:03:53 Medical History Condition Response ANEMIA/BLOOD DISORDER Y HYPERTENSION Y Gynecological HistoryNo gynecological history recorded. Obstetrics History GPAL:G 0 P 0 0 0 0 Past Encounters Encounter ID Performer Location Encounter Start Date Encounter Closed Date Diagnosis/Indication Diagnosis SNOMED-CT Code Diagnosis ICD10 Code Diagnosis IMO Codes Diagnosis Note [id number] Samson Farooq MD [facility] [place] [address] [place] [address] 06/01/2023 09:36:24 06/01/2023 10:57:53 Pain of right knee joint 4775616148 73191 M25.561 Osteoarthr itis of right knee joint 3291233202 39775 M17.11 [id number] Samson Farooq MD [facility] [place] [address] [place] [address] 07/31/2023 10:22:26 07/31/2023 11:08:48 Osteoarthritis of right knee joint 7431341957 80093 M17.11 Pain of ri ght knee joint 0535682241 40184 M25.494 [id number] Samson Farooq MD [facility] [place] [address] [place] [address] 10/06/2024 09:31:45 10/06/2024 10:59:03 Osteoarthritis of right knee joint 7335392408 38292 M17.11 Pain of ri ght knee joint 9282319987 29545 M25.561 Health Concerns Section Related Observation LastModified by Organization Detai ls LastModified Time None Recorded Concern Status LastModified by Organization Details LastModified Time None Recorded Advance Directives Directive None Recorded Payers Insurance Date Sequence Insurance Name Policy Number Policy Costa Covered Member ID Costa Member ID Guarantor Name 10/06/2024 [facility] Donna Pitt SELF SELF Donna Yoandy 10/06/2024 1 [place] [id number] Donnayovany Pitt [id number] Donna Yoandy 10/06/2024 1 [employer] - [place] (MEDICARE REPLACEMENT/ ADVANTAGE - HMO) [id number] Donna Najerae [id number] Donna Pitt Notes Date Note Type Note Provider Name and Address Organization Details Recorded Time 06/01/2023 text/html the patient is a 62-year-old female who presents with right knee pain chronically. It has been going on since last summer. She states she likes to do heavy intensity workouts to try to keep in good shape although she cannot run she does like to do aerobic type exercise stair stepper zit cetera. She states that recently she got into a hot tub the heat caused her knee to swell she notes that she has had some on and off swelling since last summer. Denies any specific trauma or injury. She also lyse to do lots of walking for exercise this aggravates her knee a bit as well. Despite occasional ibuprofen her symptoms continue. Most the pain is localized medially in the right knee worse with activity somewhat relieved by rest. Occasionally keeps her awake at night. Despite conservative measures on her own working with a pulmonary nurse practitioner and a chiropractor with ice compression and ibuprofen 800 mg t.i.d. her symptoms continue. She comes in today for initial evaluation treatment states today the pain is about a 3 on a scale 1-10.Past medical history sheet was reviewed and signed on intake sheet of today's date her allergies current medications family social history previous surgical history 10 point review of systems was reviewed discussed in detail today with the patient. ANDER Berger [address], [place], [address], [employer] [facility] 06/01/2023 13:23:26 07/31/2023 text/html Patient returns for recheck of her right knee. Six weeks ago she was having swelling and pain she likes to work out she was doing some heavy intensive exercise on a stair stepper and aerobics type workout. She states she was getting pain and swelling in the knee x-rays showed what appeared to be significant narrowing in the medial compartment with moderately severe primary osteoarthritis. She has some mild hypertrophic changes noted off the medial femoral condyle also. There was only about 1 mm of joint space remaining in the medial compartment patellofemoral articulation also shows moderate narrowing. We treated her with ibuprofen 800 mg t.i.d. with food also did a shot of cortisone. She comes in today stating that she has also changed her exercise routine and the swelling has gone down. Today she states her pain is between 0 and 1 on a scale of 1-10 she is feeling much better she is back to exercising but doing things a little differently this seems to be helping. She also ices her knee down after exercise. She came in today for recheck and to talk about further treatment options for down the road if her knee flares up once again. ANDER Berger [address], [place], [address], [employer] 07/31/2023 10:59:33 10/06/2024 text/html the patient returns with right knee pain. She is due for new x-rays we will get those today. It has been more than a year since her last x-rays previous x-rays show moderate primary osteoarthritis in the medial compartment. She has some minor changes in the patellofemoral articulation as well. She likes to work out she has switched up her routine to do more low-impact resistance training. She does like to walk but this aggravates her symptoms somewhat. She has aching pain mostly in the medial to posterior portion of the right knee. She is not currently on any anti-inflammatory medication. She states the pain goes anywhere from a 3 to a 5 on a scale of 1-10 some days it is worse than others. She has not been seen for more than a year. Last time we shot of cortisone gave her very good relief for more than a year. She comes in today requesting further evaluation and treatment. Denies any new trauma or injury no effusion or swelling or mechanical symptoms. A new past medical history sheet was reviewed and signed on the intake sheet of today's date drug allergies current medications family social history previous surgical history 10 point review of systems was reviewed and discussed in detail today with the patient. ANDER Berger [address] [place] [address], [place] [address], [place], [address], [place] [facility] [place] [employer] [facility] 10/06/2024 10:35:09 OBGyn Episode No OBEpisode recorded.
--- OUTSIDE RECORDS SUMMARY | 2025-02-25 23:05 | XMS_ITS | Clinical Summary ---
Author Organization [facility] Address [address] [place] [address] Care Team Providers Care Pipeline Welder Name Role Phone Philip Sanchez MD Primary Care Provider [phone] Allergies Active Allergy Reactions Criticality Noted Date Comments Latex Rash Medium 12/15/2024 Tetracyclines Rash Medium 12/15/2024 Medications ergocalciferol (VITAMIN D) 50,000 unit capsule Take 1 capsule (50,000 Units total) by mouth once a week 05/11/2024 Active buPROPion SR (WELLBUTRIN SR) 150 mg 12 hr tablet Take 1 tablet (150 mg total) by mouth 2 (two) times a day Active mzzcevrg-gdvg-g in-folic acid 18-0.4 mg tablet Take by [...] Description 12/15/2024 8:30 AM CDT Office Visit [facility] [address] [facility] [address] [place] [address] Maisha Velasquez PA Mass of lower outer quadrant of right breast (Primary Dx); Family history of breast cancer 12/08/2024 5:35 PM CDT - 12/08/2024 11:59 PM CDT Hospital Encounter [facility] [address] [place] [address], [place] [address] Discharge Disposition: Discharge to home or self care 12/07/2024 Orders Only [facility] Breast Imaging [facility] ([facility] [address] [place] [address] Provider, MD Kenji from Last 3 Months Immunizations Immunization Administration [...] on file Legal Sex 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 RIGHT UNILATERAL DIAGNOSTIC MAMMOGRAM [...] Laterality Modality Breast Bilateral Mammography Historical Provider MD DUFFY MAMMO PROCEDURES Miriam l Result from Last 3 Months or Most Recently Relevant to Health Maintenance Insurance [facility] MEDICARE [place] [employer] MEDICARE GOLD Care Teams Pipeline Welder Relationship Specialty Start Date End Date Philip Sanchez MD [address] [place] [address] [address] [place] [id number] PCP - General Family Medicine 03/09/24
--- NOTE | 2025-02-25 23:16 | ECG_ITS ---
Test Date: 2025-02-25 23:11:26 Measurements Intervals Waller Rate: 84 P: 1 NV: 196 QRS: -10 QRSD: 103 T: 58 QT: 353 QTc: 418 Interpretive Statements SINUS RHYTHM No previous ECG available for comparison Electronically Signed On 02-26-2025 06:17:51 BIOTECHNOLOGIST by Gama Simms M.D.
[2025-02-25 23:17] VITALS: BP 147/76; PULSE 80; RESP 18; O2SAT 100
[2025-02-25] MEDS: EPINEPHrine HCL INJ 1 MG/ML AMPUL 0.5 MG IM (23:17)
--- NOTE | 2025-02-25 23:22 | ED.ALLEREA ---
HPI - Allergic Reaction General Chief complaint: Allergic Reaction Stated complaint: allergic reaction Time Seen by Provider: 02/25/25 23:15 History of Present Illness HPI narrative: 64-year-old female presenting to the emergency department for suspected allergic reaction. Patient states she just got off a cruise yesterday and was feeling like her throat was closing up and she was having allergic reaction to something. Did not take any medications prior to the symptoms or any potential exposures to her knowledge. She tried some remedies at home but did not take any antihistamine such as diphenhydramine or Pepcid. Got better on its own but today she had recurrence of the symptoms were she feels like her throat was closing and she was having difficulty breathing and difficulty swallowing. Came to the ER. States that the only thing that is currently helping his her drinking some clear fluids. Brought back to room 1 for evaluation. She does appear in distress and anxious in appearance and concerned that her throat is closing. No rash or other symptoms such as vomiting, GI upset, itchiness. Given the respiratory concerns with potential for allergic reaction will proceed down potential anaphylaxis/allergic reaction route and patient was given epinephrine immediately. Related Data Home Medications ?Medication ?Instructions ?Recorded ?Confirmed ?Last Taken ?Type meloxicam 15 mg tablet 15 mg PO .PRN 11/03/24 01/06/25 12/16/24 History Allergies Allergy/AdvReac Type Severity Reaction Status Date / Time latex Allergy Intermediate RASH Verified 02/25/25 23:05 Tetracyclines Allergy Unknown RASH Verified 02/25/25 23:05 Review of Systems Review of Systems: As reviewed above in HPI [facility] Past Medical History Medical History Hypertension JUAN (obstructive sleep apnea) Insomnia Obesity (BMI 30.0-34.9) Surgical History Surgical History Hx laparoscopic cholecystectomy [facility] 12/21 Dr. Elia Heck Hx of breast biopsy 2009 Hx of removal of ovary 2009 Family History Family History Mother Diabetes mellitus Family history of malignant neoplasm of breast in first degree relative Grandparent Diabetes mellitus Family history of malignant neoplasm of breast Father Hypertension Family history of cardiovascular disease Social History Social History Smoking packs per day: 1 Smoking cigarettes per day: 20.0 Years smoked: 10 Smoking pack-years: 10.00 Smoking status: Former smoker Tobacco type: cigarettes Smoking end date: 04/06/81 Alcohol intake: current Drinks per week: 2 Substance use: never Substance use type: does not use Lack of Transportation: No Lack of Food: Never True Current Housing: I Have Housing Concerned About Future Housing: No Difficulty Paying Gas/Electric Bills: No Difficulty Paying for Meds: No Currently Unemployed: No Education: High School Diploma/GED Difficulty w/ Childcare or Family Care: No Living arrangements: with family Additional living arrangements comments: Family Spiritual care concerns: No Exam Narrative: GENERAL: uncomfortable appearing and in distress, complaining of difficulty breathing and swallowing. HEAD: [Normocephalic, atraumatic.] EYES: [PERRLA and EOMI.] ENT: Nares clear, no rhinorrhea or epistaxis. Mucous membranes moist. No posterior pharyngeal erythema or swelling. No base of tongue swelling. No pooling of secretions. No tenderness over the anterior neck, no goiter. No bruit auscultated. NECK: Supple. CHEST: [Clear to auscultation. No respiratory distress.] HEART: [Regular rate and rhythm]. No murmur heard. [Normal peripheral pulses.] ABDOMEN: [Soft, nondistended], [nontender], [No rigidity or guarding] EXTREMITIES: Normal range of motion. [No edema.] SKIN: Warm, dry, no rash. NEURO: [No focal deficits]. Alert and oriented [x3.] PSYCH: [Normal mood and affect.] Course Vital Signs Vital signs: Vital Signs Pulse Rate 80 02/25/25 23:17 Respiratory Rate 18 02/25/25 23:17 Blood Pressure 147/76 H 02/25/25 23:17 Pulse Oximetry 100 02/25/25 23:17 Pulse Rate 84 02/26/25 03:14 Respiratory Rate 16 02/26/25 03:14 Blood Pressure 119/74 02/26/25 03:14 Pulse Oximetry 97 02/26/25 03:14 Oxygen Delivery Room Air 02/26/25 01:09 MDM - Allergic Reaction MDM Narrative Medical decision making narrative: 64-year-old female presenting to the emergency department for suspected allergic reaction. Patient states she just got off a cruise yesterday and was feeling like her throat was closing up and she was having allergic reaction to something. Did not take any medications prior to the symptoms or any potential exposures to her knowledge. She tried some remedies at home but did not take any antihistamine such as diphenhydramine or Pepcid. Got better on its own but today she had recurrence of the symptoms were she feels like her throat was closing and she was having difficulty breathing and difficulty swallowing. Came to the ER. States that the only thing that is currently helping his her drinking some clear fluids. Brought back to room 1 for evaluation. She does appear in distress and anxious in appearance and concerned that her throat is closing. No rash or other symptoms such as vomiting, GI upset, itchiness. Given the respiratory concerns with potential for allergic reaction will proceed down potential anaphylaxis/allergic reaction route and patient was given epinephrine immediately. No posterior pharyngeal erythema or swelling. No base of tongue swelling. No pooling of secretions. No tenderness over the anterior neck, no goiter. No bruit auscultated. Patient is hemodynamically stable but is uncomfortable appearing and complaining of shortness of breath. Given 0.5 mg of subcutaneous / IM appy. IV established and she was given Pepcid Solu-Medrol magnesium in fluid. Laboratory studies EKG and chest x-ray ordered. Possibility of allergic reaction versus anaphylaxis versus anxiety attack given she has no other markers of an inflammation or histamine release without any other signs of anaphylaxis but will be precautions and keep treating her as such until further workup or symptom changing. Patient re-evaluated after the epinephrine and medications and had no interval improvement. She was no longer as anxious appearing and I was able to have a conversation with her and the family member. Patient demonstrates difficulty initiating the swallowing mechanism and states it feels like she can not make her muscles in her mouth and neck work to start a swallowing process however when she has water or any external stimulus like food she is able to get that down and demonstrated this at bedside multiple times successfully. Was able to drink water and initiate a swallow without difficulty however without water she felt like she cannot initiate or move her muscles and states that they feel paralyzed. She did have a recent surgery that went uncomplicated and had a postop. Without any focal cord paralysis or neck symptoms so unlikely related. She has had no history of strokes and overall low risk for central pathology but will have to investigate with imaging and further assessments. Could potentially be dysphagia from stroke versus mechanical obstruction less likely. Symptoms started last night when she got off a cruise and then interval improvement with resolution and then restarted once again today while she was on a flight from [place]. CT of the head ordered and CT of the soft tissues of the neck ordered. CT scan showed no acute abnormalities or vascular issues or structural issues. No intracranial process. Discussed these findings with the patient who states she is having symptomatic improvement after the steroids and medications earlier and swallowing more easily at this time. I did discuss the case with the on-call neurologist given the sudden onset dysphagia which could potentially be a neuromotor issue although she has no other bulbar symptoms or other findings. Dr. Linton did state that patient should be evaluated and get an MRI but he would recommend doing this on outpatient basis given the results of the findings today but will allow the patient to decide. Spoke to the patient about plan of care and she would prefer to go home rather than being admitted for Neurology evaluation tomorrow an MRI. She will be given some steroids and as needed diphenhydramine if she has any recurrence of her symptoms if it truly is related to potential allergic reaction although less likely waist on workup today. She will contact Neurology on outpatient basis and given strict return precaution. Patient verbalized understanding these instructions and safe for discharge. Medical Records Attestation: I reviewed the patient's medical records. Lab Data Attestation: I reviewed the patient's lab results. 02/25/25 23:23 02/25/25 23:23 Labs: Lab Results 02/25/25 Range/Units 23:23 WBC 8.0 (4.5-10.0) K/mm3 RBC 4.53 (4.2-5.4) M/mm3 Hgb 14.0 (12.0-15.0) g/dL Hct 42.0 (37.0-47.0) % MCV 92.7 (80-100) fl MCH 30.9 (26-34) pg MCHC 33.3 (32-36) g/dl RDW 13.0 (11.5-14.5) % Plt Count 232 (150-375) k/mm3 MPV 9.5 (7.4-10.4) fl Immature Gran % (Auto) 0.5 (0-0.5) % Neut % (Auto) 49.5 (45.5-73.1) % Lymph % (Auto) 34.7 (18.3-44.2) % [place] % (Auto) 11.4 H (2.6-8.5) % Eos % (Auto) 2.8 (0-4.4) % Baso % (Auto) 1.1 (0.2-1.2) % Lymph # (Auto) 2.76 (0.9-3.2) K/mm3 [place] # (Auto) 0.9 H (0.1-0.6) K/mm3 Eos # (Auto) 0.2 (0-0.3) K/mm3 Baso # (Auto) 0.1 (0.0-0.1) K/mm3 Abs Immat Gran (auto) 0.04 H (0.00-0.031) K/mm3 Absolute Neuts (auto) 3.9 (1.3-6.7) K/mm3 Absolute Nucleated RBC 0.000 (0.0-0.012) K/mm3 Nucleated RBC % 0.0 (0.0-0.2) % Sodium 137 (137-145) mmol/L Potassium 3.8 (3.4-5.0) mmol/L Chloride 101 (98-107) mmol/L Carbon Dioxide 25 (22-30) mmol/L Anion Gap 11 (4-12) mmol/L BUN 18 H (7-17) mg/dL Creatinine 0.82 (0.7-1.0) mg/dL Estim Creat Clear Calc Not Reportable Estimated GFR > 60 (59 - ) Glucose 89 (65-110) mg/dL Calcium 10.0 (8.4-10.2) mg/dL Magnesium 2.0 (1.6-2.3) mg/dL Imaging Data Attestation: I personally reviewed and interpreted this imaging study as follows: My impression: No acute findings. Discharge Plan Discharge Clinical Impression: Dysphagia Patient Disposition: Home Condition: Stable Instructions: Antibiotic Form, Dysphagia (ED) Additional Instructions: Follow-up with Neurology Dr. Linton on outpatient basis for workup evaluation and MRI imaging as an warranted. We have sent you home with some steroids and Benadryl in case this is the allergy or inflammation causing symptoms but your CT scans were unremarkable as well as your blood work. Return with any worsening symptoms new symptom concerns such as unilateral facial droop her arm drop, loss of motor function or sensation, losing consciousness or any other emergent concerns otherwise follow-up with Neurology on outpatient basis. Patient Language: Namibian Prescriptions: New famotidine [Pepcid] 20 mg tablet 20 mg PO BID Qty: 20 0RF prednisone 50 mg tablet 50 mg PO DAILY 5 Days Qty: 5 0RF diphenhydramine HCl 50 mg capsule 50 mg PO Q8H PRN (Reason: allergy symptoms) Qty: 1 0RF No Action trazodone 50 mg tablet 50 mg PO QHS Qty: 90 1RF (DME) CPAP See Rx Instructions .Route .MEDSUPPLY Qty: 1 0RF Rx Instructions: medium ResMed AirTouch F20 fullface mask and heated humidity with control of events at all pressures between 5 cm and 10 cm. meloxicam 15 mg tablet 15 mg PO .PRN Patient Comments: Check w Dr heck hydrocodone-acetaminophen 5-325 mg tablet 1 tablet PO Q4H PRN (Reason: pain) Qty: 10 0RF ergocalciferol (vitamin D2) 1,250 mcg (50,000 unit) capsule See Rx Instructions .ROUTE .COMPLEX Qty: 12 2RF Dose Instruction: Take 1 capsule by mouth once a week Rx Instructions: Take 1 capsule by mouth once a week scopolamine base 1 mg over 3 days patch 3 day 1 patch transdermal Q3D PRN (Reason: motion sickness) Qty: 10 0RF bupropion HCl 150 mg tablet extended release 24 hr See Rx Instructions .ROUTE .COMPLEX Qty: 270 1RF Dose Instruction: TAKE 3 TABLETS BY MOUTH IN THE MORNING Rx Instructions: TAKE 3 TABLETS BY MOUTH IN THE MORNING spironolactone 50 mg tablet See Rx Instructions .ROUTE .COMPLEX Qty: 90 1RF Dose Instruction: TAKE ONE TABLET BY MOUTH ONCE DAILY Rx Instructions: TAKE ONE TABLET BY MOUTH ONCE DAILY Follow-up/Referrals: Philip Sanchez MD [Primary Care Provider, [facility]] Time of Disposition: 03:07
[2025-02-25] MEDS: MAGNESIUM SULF 2 GM/WATER 50ML 2 GM/50 ML BAG IVPB (23:23)
[2025-02-25] MEDS: FAMOTIDINE 20 MG/2 ML VIAL IV PUSH (23:23)
[2025-02-25 23:33] LABS: Hematocrit 42.0 % (37.0-47.0); Hemoglobin 14.0 g/dL (12.0-15.0); Immature Granulocyte Percent A 0.5 % (0-0.5); Lymphocytes Absolute Auto 2.76 K/mm3 (0.9-3.2); Mean Corpuscular HGB Conc 33.3 g/dl (32-36); Mean Corpuscular Hemoglobin 30.9 pg (26-34); Mean Corpuscular Volume 92.7 fl (80-100); Nucleated Red Blood Cells Absolute Auto 0.000 K/mm3 (0.0-0.012); Nucleated Red Blood Cells Perc 0.0 % (0.0-0.2); Platelet Count Result 232 k/mm3 (150-375); Red Blood Count 4.53 M/mm3 (4.2-5.4); White Blood Count 8.0 K/mm3 (4.5-10.0)
--- OUTSIDE RECORDS SUMMARY | 2025-02-25 23:34 | XMS_ITS | Clinical Summary ---
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
--- OUTSIDE RECORDS SUMMARY | 2025-02-25 23:34 | XMS_ITS | Clinical Summary ---
Author Organization [facility] Address [address] [place] [id number] Care Team Providers Care Asbestos Abatement Worker Name Role Phone Philip Sanchez MD Primary Care Provider [phone] Allergies Active Allergy Reactions Criticality Noted Date Comments Latex Rash Medium 12/15/2024 Tetracyclines Rash Medium 12/15/2024 Medications ergocalciferol (VITAMIN D) 50,000 unit capsule Take 1 capsule (50,000 Units total) by mouth once a week 05/11/2024 Active buPROPion SR (WELLBUTRIN SR) 150 mg 12 hr tablet Take 1 tablet (150 mg total) by mouth 2 (two) times a day Active oasdieic-tjaq-d in-folic acid 18-0.4 mg tablet Take by [...] Description 12/15/2024 8:30 AM CDT Office Visit [facility] Medicine Surgery [address] [facility] [address] [place] [address] Maisha Velasquez PA Mass of lower outer quadrant of right breast (Primary Dx); Family history of breast cancer 12/08/2024 5:35 PM CDT - 12/08/2024 11:59 PM CDT Hospital Encounter [facility] [address] [place] [address], [place] [address] Discharge Disposition: Discharge to home or self care 12/07/2024 Orders Only [facility] Breast Imaging [facility] ([facility]) [address] [place] [address] Provider, MD Kenji from Last 3 Months [...] on file 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 RIGHT UNILATERAL DIAGNOSTIC MAMMOGRAM [...] Most Recently Relevant to Health Maintenance Insurance [facility] MEDICARE [facility] AETNA MEDICARE GOLD Care Teams Asbestos Abatement Worker Relationship Specialty Start Date End Date Philip Sanchez MD [address] [place] [address] [address] [place] [id number] PCP - General Family Medicine 03/09/24
[2025-02-25 23:45] LABS: Anion Gap 11 mmol/L (4-12); Blood Urea Nitrogen 18 mg/dL (7-17); Calcium 10.0 mg/dL (8.4-10.2); Carbon Dioxide 25 mmol/L (22-30); Chloride 101 mmol/L (98-107); Estimated Glomerular Filt Rate > 60; Glucose 89 mg/dL (65-110); Magnesium 2.0 mg/dL (1.6-2.3); Potassium 3.8 mmol/L (3.4-5.0); Sodium 137 mmol/L (137-145)
[2025-02-26 01:04] VITALS: O2SAT 100
[2025-02-26 01:09] VITALS: O2SAT 100
[2025-02-26 01:11] VITALS: BP 142/71; PULSE 80; RESP 18; O2SAT 97
[2025-02-26 03:14] VITALS: BP 119/74; PULSE 84; RESP 16; O2SAT 97
== END 2025-02-26 03:16 | disposition home or self-care (01) ==
PROVIDERS: Emergency Provider Student in an Organized Health Care Education/Training Program; PCP Family Medicine
DX: R13.10 Dysphagia, unspecified (principal); I10 Essential (primary) hypertension; G47.33 Obstructive sleep apnea (adult) (pediatric); Z87.891 Personal history of nicotine dependence; Z90.49 Acquired absence of other specified parts of digestive tract
CPT/HCPCS: 36415; 70496; 70498; 71045; 80048; 83735; 85025; 93005; 96365; 96372; 96375; 99284; J0166; J1200; J2919; J3475; Q9967